=== PATIENT | female | born 1965 | race Caucasian/White ===

== ENCOUNTER → 2016-11-11 | Outpatient (CLI) | payer MEDICARE | LOC: GMAH 10:31 | PROVIDERS: ATTEND Family Medicine | DX: R56.9 Unspecified convulsions (principal) ==

== ENCOUNTER → 2016-11-12 | Outpatient (CLI) | payer MEDICARE ==
--- NOTE | 2016-11-12 10:10 | RAD ---
EXAM DESCRIPTION: Right ankle three views CLINICAL HISTORY: 51 y/o ,F, ankle pain COMPARISON: None. IMPRESSION: Diffuse soft tissue swelling. Very minimally posteriorly displaced oblique fracture of the distal fibula just above the joint line. Mild widening of the medial clear space suggesting a degree of ankle instability/ deltoid injury. Probable eversion injury given overall pattern. Bones are osteopenic/osteoporotic. Moderate joint effusion/ hemarthrosis. Small plantar and Achilles enthesophyte. Electronically signed by: Nato Riley MD 11/12/2016 10:08
== END ==
LOC: RAD 08:39
PROVIDERS: ATTEND Orthopaedic Surgery
DX: S82.831A Other fracture of upper and lower end of right fibula, initial encounter for closed fracture (principal); M85.871 Other specified disorders of bone density and structure, right ankle and foot; M79.89 Other specified soft tissue disorders; M25.471 Effusion, right ankle; M77.8 Other enthesopathies, not elsewhere classified

== ENCOUNTER → 2016-11-19 | Outpatient (CLI) | payer MEDICARE ==
--- NOTE | 2016-11-19 09:12 | RAD ---
EXAM DESCRIPTION: XR ANKLE 3 OR MORE VIEWS CLINICAL HISTORY: CLOSED FX OF DISTAL FIBULA COMPARISON: 12 November 2016. TECHNIQUE: Three views. FINDINGS: The exam is obtained through casting material in demonstrates of prior oblique fracture of the distal fibula. There is 1 cortical width of lateral displacement of the distal fracture fragment. A plantar calcaneal spur is observed. The ankle mortise is intact. IMPRESSION: An oblique fracture of the distal fibula is observed unchanged from the prior exam. Electronically signed by: Gene Luo MD 11/19/2016 09:11
== END ==
LOC: RAD 07:50
PROVIDERS: ATTEND Orthopaedic Surgery
DX: S82.821A Torus fracture of lower end of right fibula, initial encounter for closed fracture (principal)

== ENCOUNTER → 2016-11-20 | Outpatient (CLI) | payer MEDICARE | LOC: GMAH 10:14 | PROVIDERS: ATTEND Family Medicine | DX: R56.9 Unspecified convulsions (principal) ==

== ENCOUNTER → 2016-12-02 | Outpatient (CLI) | payer MEDICARE ==
--- NOTE | 2016-12-02 10:01 | RAD ---
EXAM DESCRIPTION: XR ANKLE 3 OR MORE VIEWS CLINICAL HISTORY: 51 y/o ,F, CLOSED FRACTURE OF DISTAL FIBULA COMPARISON: November 19, 2016 IMPRESSION: Three views right ankle When compared to the prior the obliquely oriented lateral malleoli fracture is unchanged. The syndesmosis is unremarkable. Ankle mortise is unremarkable. No fracture noted. Electronically signed by: Roni Manzano MD 12/02/2016 10:00
== END ==
LOC: RAD 07:42
PROVIDERS: ATTEND Orthopaedic Surgery
DX: S82.821A Torus fracture of lower end of right fibula, initial encounter for closed fracture (principal)

== ENCOUNTER → 2016-12-26 | Outpatient (CLI) | payer MEDICARE | END | disposition home or self-care (01) | LOC: GMAH 12:18 | PROVIDERS: ATTEND Family Medicine | DX: R56.9 Unspecified convulsions (principal) ==

== ENCOUNTER 2017-06-08 09:33 | Observation (INO) | payer MEDICARE ==
[2017-06-08] MEDS ORDERED: PHENYTOIN SODIUM INJ 1,000 MG in SODIUM CHLORIDE 0.9% 100ML 100 ML IVPB ONE (09:40)
[2017-06-08] MEDS ORDERED: PHENYTOIN SODIUM INJ 250 MG/5 ML VIAL ONE ×2 (09:43→20:59)
[2017-06-08] MEDS ORDERED: SODIUM CHLORIDE 0.9% 100ML 100 ML IVPB ONE ×2 (09:43→20:59)
--- NOTE | 2017-06-08 09:47 | ED.PDOC ---
History of Present Illness - General Chief Complaint: Neuro Symptoms/Deficits Stated Complaint: seizures Time Seen by Provider: 06/08/17 09:44 Source: EMS notes reviewed Exam Limitations: clinical condition - History of Present Illness Initial Comments: Corey Berman 52 y/o female brought by ems after they were called up at a convenience store where she had multiple seizure episodes.Has long standing history of seizure disorder.Patient was seizing when brought to er.Also fell to the floor while having seizure at convenience store. Timing/Duration: 1-3 hours Severity: severe Improving Factors: nothing Worsening Factors: nothing Allergies/Adverse Reactions: Allergies Latex Allergy (Verified 10/27/14 12:40) Anaphylaxis New allergy reported 10/27/14 Levetiracetam [From [facility]] Allergy (Verified 10/14/16 01:28) Home Medications: Ambulatory Orders Lisinopril 10 mg PO DAILY 10/27/14 Phenytoin Sodium Cap [Dilantin Cap] 200 mg PO BID 10/27/14 Oxcarbazepine [Trileptal] 300 mg PO DAILY 09/18/15 Chlorzoxazone 500 mg PO 10/14/16 Nitroglycerin [Nitrostat] 0.4 mg SL Q5MIN PRN #1 bottle 10/14/16 Oxcarbazepine 600 mg PO 10/14/16 Review of Systems - Review of Systems Unable to Obtain Due To: clinical condition - was actively seizing when brought to er unresponsive Past Medical History (General) - Patient Medical History Hx Seizures: Yes Hx Stroke: No Hx Cardiac Disorders: Yes Hx Congestive Heart Failure: No Hx Hypertension: Yes Hx Diabetes: No Hx MRSA: No - Vaccination History Hx Tetanus, Diphtheria Vaccination: No Hx Influenza Vaccination: Yes Hx Pneumococcal Vaccination: No - Social History Hx Tobacco Use: Yes Hx Alcohol Use: No Hx Substance Use: No Hx Substance Use Treatment: No Hx Depression: No - Female History Patient : No Family Medical History - Family History Mother Family History: No Known Living Status: Age at (years of age): 65 Hx Family Cancer: Yes - lung Father Family History: Unknown Living Status: Still Living Hx Family Diabetes: Yes Hx Family;Other: Adopted; unknown family hx Physical Exam - Physical Exam General Appearance: Other - seizing,unresponsive Eye Exam: bilateral normal ENT Exam: normal ENT inspection, TMs normal Neck: supple Respiratory: lungs clear Cardiovascular/Chest: normal peripheral pulses, regular rate, rhythm, no murmur Peripheral Pulses: radial,right: 1+, radial,left: 1+ Gastrointestinal/Abdominal: normal bowel sounds, soft, no organomegaly Back Exam: normal inspection Extremities Exam: no evidence of injury 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: PERRL Skin Exam: normal color, warm/dry Progress - Progress Progress: 06/08/17 11:42 Last Vital Signs Temp 98.3 F 06/08/17 10:02 Pulse 91 H 06/08/17 11:00 Resp 16 06/08/17 11:00 BP 108/70 06/08/17 11:00 Pulse Ox 98 06/08/17 11:00 Laboratory Tests 06/08/17 06/08/17 06/08/17 10:09 10:09 10:09 WBC 7.9 RBC 4.75 Hgb 13.9 Hct 42.9 MCV 90.3 MCH 29.3 MCHC 32.5 L RDW 13.7 Plt Count 257 MPV 8.1 Absolute Neuts (auto) 4.70 Absolute Lymphs (auto) 2.70 Absolute Monos (auto) 0.40 Absolute Eos (auto) 0.10 Absolute Basos (auto) 0.10 Neutrophils % 59.7 Lymphocytes % 33.9 Monocytes % 4.6 Eosinophils % 0.8 L Basophils % 1.0 Sodium 137 Potassium 4.0 Chloride 104 Carbon Dioxide 17 L Anion Gap 20.0 H BUN 11 Creatinine 0.63 BUN/Creatinine Ratio 17.5 POC Glucose 155 H Random Glucose 151 H Serum Osmolality 276.1 Calcium 8.4 Total Bilirubin 0.3 AST 25 ALT 11 Alkaline Phosphatase 124 H Serum Total Protein 7.5 Albumin 4.0 Globulin 3.5 Albumin/Globulin Ratio 1.1 Phenytoin 4.4 L - EKG/XRAY/CT CT Ordered: Yes - head/neck-no acute abnormalities Departure - Departure Clinical Impression: Dilantin level too low, Post-ictal state Uncontrolled seizures Qualifiers: Convulsion type: unspecified Qualified Code(s): R56.9 - Unspecified convulsions Time of Disposition: 11:43 Disposition: Admit Patient Condition: Fair Departure Forms: Patient Portal Self Enrollment Referrals: Shay Hartman MD [Primary Care Provider] - 1-2 Weeks Home Medications: Ambulatory Orders Lisinopril 10 mg PO DAILY 10/27/14 Phenytoin Sodium Cap [Dilantin Cap] 200 mg PO BID 10/27/14 Oxcarbazepine [Trileptal] 300 mg PO DAILY 09/18/15 Chlorzoxazone 500 mg PO 10/14/16 Nitroglycerin [Nitrostat] 0.4 mg SL Q5MIN PRN #1 bottle 10/14/16 Oxcarbazepine 600 mg PO 10/14/16 Decision To Admit - Decistion To Admit Decision to Admit Reason: Admit from ER Decision to Admit Date: 06/08/17 - D/W Marcelle Cruz-ANP/Hospitalist for admit Decision to Admit Time: 11:43
--- NOTE | 2017-06-08 10:41 | RAD ---
PROCEDURE: XR CHEST 1 VIEW HISTORY: ams COMPARISON: 10/14/2016 TECHNIQUE: Single projection of the chest was done. FINDINGS: The lung figueroa are well inflated . There are no discrete airspace infiltrates, pneumothoraces or pleural effusions. The pulmonary vascularity is normal. The cardiomediastinal silhouette is unremarkable for patient's age and sex. IMPRESSION: There is no acute pleural-parenchymal process seen in the imaged lung figueroa. Location of Interpretation: Teleradiology Electronically signed by: Sid Faust MD 06/08/2017 10:40 AM CDT Workstation: [id number]
--- NOTE | 2017-06-08 11:04 | CT ---
EXAM DESCRIPTION: Head CLINICAL HISTORY: seizures COMPARISON: None Available. TECHNIQUE: Contiguous axial images of the brain were obtained without the administration of intravenous contrast. This exam was performed according to our departmental dose-optimization program, which includes automated exposure control, adjustment of the mA and/or kV according to patient size and/or use of iterative reconstruction technique. FINDINGS: Several images are degraded by motion artifact. There is no gross acute intracranial hemorrhage or mass effect. Ventricular system is within normal limits. There is adequate vallecillo-white matter differentiation. There is no skull fracture. The visualized paranasal sinuses and mastoid air cells are within normal limits. IMPRESSION: Several images are degraded by motion artifact. No gross acute intracranial hemorrhage or mass effect. Recommend further imaging as indicated. Electronically signed by: David Zamora MD 06/08/2017 11:02 AM CDT
--- NOTE | 2017-06-08 11:21 | CT ---
EXAM DESCRIPTION: CT CERVICAL SPINE CLINICAL HISTORY: seizures COMPARISON: None Available. TECHNIQUE: Contiguous axial images of the cervical spine were obtained followed by reconstruction images.This exam was performed according to our departmental dose-optimization program, which includes automated exposure control, adjustment of the mA and/or kV according to patient size and/or use of iterative reconstruction technique. FINDINGS: There is no acute fracture or subluxation. The prevertebral soft tissues are within normal limits. There is anterior osteophytic formation at C4 and C5. IMPRESSION: No acute fracture or subluxation. Electronically signed by: David Zamora MD 06/08/2017 11:19 AM CDT
--- NOTE | 2017-06-08 12:27 | HP ---
SUPERVISING PHYSICIAN: CHIEF COMPLAINT: Seizures. HISTORY OF PRESENT ILLNESS: This is a 52 year-old female patient who was brought in by EMS after the patient was found to have seizures at a convenience store. At that time, she had several episodes of seizures. She has a longstanding history of seizure disorders. She sees Dr. Siddiqui for her medications. There was also a witnessed fall while having this seizure in the convenience store, but no report of trauma. In the Emergency Room her lab was done and her sodium was 137, potassium 4, chloride 104, carbon dioxide 17, BUN 11 and creatinine 0.63. She had an elevated glucose of 155. Her liver enzymes were basically within normal limits with the exception of her alkaline phosphatase which was 124. Her Dilantin level was low at 4.4. CBC was basically within normal limits. Head CT was done and per radiologic interpretation showed no gross acute intracranial hemorrhage or mass effect. Her cervical spine CT per radiologic interpretation showed no acute fracture or subluxation. She was given one gram of Dilantin in the Emergency Room as well as 2 mg of Ativan. After the administration of the Ativan she had no further seizures but she was postictal. Her vital signs were stable. I was called for admission. Review of systems and medical history is limited due to the patient's mental status. Most information was obtained via the EMR and her chart at [facility]. PAST MEDICAL HISTORY: 1. Seizure disorder. 2. Anxiety. 3. Depression. 4. Hypertension. PAST SURGICAL HISTORY: 1. Appendectomy. 2. Uvulopalatopharyngoplasty. CURRENT MEDICATIONS: Per EMR and awaiting verification. ALLERGIES: NO KNOWN DRUG ALLERGIES. FAMILY HISTORY: Unknown. SOCIAL HISTORY: She is retired. She is single. She smokes about one-half to one pack of cigarettes daily and she has no ETOH history. REVIEW OF SYSTEMS: Unable to obtain due to patient's current mental status. PHYSICAL EXAMINATION: VITAL SIGNS: She is afebrile. Heart rate has gone as high as 117 and is now 73. Blood pressure is 108/70. Respiratory rate is 16 to 24 breaths per minute. O2 saturation is 96% on 2 liters. GENERAL: This is a 52 year-old female patient who is lying in her hospital bed. HEENT: Normocephalic and atraumatic. Pupils are equal and reactive. Oropharynx is clear. Oral mucous membranes are moist. NECK: Supple without mass. CHEST: Clear to auscultation bilaterally. CARDIOVASCULAR: Regular rate and rhythm. ABDOMEN: Soft, nondistended, bowel sounds are positive. EXTREMITIES: No cyanosis, clubbing, or edema. NEUROLOGIC: She is obtunded. She withdraws to noxious stimuli. She is postictal. SKIN: Warm and dry with no lesions noted. LABORATORY: Labs and films are as per the history of present illness. ASSESSMENT: 1. Seizure disorder with subtherapeutic Dilantin level. 2. Altered mental status most likely sedimentation to postictal state. 3. Hypertension. 4. Depression. 5. Anxiety. PLAN: We will place the patient in observation. I have ordered a urinalysis as they were unable to obtain one in the Emergency Room. Her friend stated that she gets Dilantin 400 mg twice a day so I have restarted that amount. I will start it this evening except I will give it to her IV. She will be n.p.o. until she wakes up. I have ordered routine lab for in the morning including Dilantin level. We will start her on a PPI for ulcer prophylaxis. I have also ordered some Ativan in case she has any further seizure activity. She will be on every 6 hours neuro checks as well as on telemetry. We will known to to monitor the patient closely and follow as needed. Dr. Bianchi is the collaborating physician and available for consultation. #[id number] [facility]ITAL[facility]oty
[2017-06-08] MEDS ORDERED: SODIUM CHLORIDE 0.9% (FLUSH) 10 ML SYG IV PRN (14:08)
[2017-06-08] MEDS ORDERED: LEVALBUTEROL NEBS 1.25 MG/3 ML VIAL NEB PRN (14:13)
[2017-06-08] MEDS ORDERED: IV SET AND CAP CHANGE INJ INJ SCH (14:30)
[2017-06-08] MEDS ORDERED: DEX 5% W/NACL 0.45% 1000ML 1,000 ML IVS ONE (14:45)
[2017-06-08] MEDS: DEX 5% W/NACL 0.45% 1000ML 1,000 ML IVS PRN (14:47)
[2017-06-08] MEDS ORDERED: SODIUM CHLORIDE 0.9% IVPB SCH ×2 (15:00→21:00)
[2017-06-08] MEDS ORDERED: PHENYTOIN SODIUM IVPB SCH ×2 (15:00→21:00)
[2017-06-08] MEDS: PANTOPRAZOLE SODIUM IV 40 MG VIAL IV SCH (15:48)
[2017-06-08] MEDS: LEVALBUTEROL NEBS 1.25 MG/3 ML VIAL NEB SCH ×2 (16:40→19:44)
[2017-06-09] MEDS: DEX 5% W/NACL 0.45% 1000ML 1,000 ML IVS PRN (04:34)
[2017-06-09] MEDS: PANTOPRAZOLE SODIUM IV 40 MG VIAL IV SCH (06:27)
[2017-06-09 06:31] VITALS: BP 131/82; TEMP 98.5; O2SAT 97
[2017-06-09] MEDS ORDERED: PHENYTOIN SODIUM INJ 250 MG/5 ML VIAL ONE (07:56)
[2017-06-09] MEDS ORDERED: SODIUM CHLORIDE 0.9% 100ML 0 ML IVPB ONE (07:56)
[2017-06-09] MEDS: LEVALBUTEROL NEBS 1.25 MG/3 ML VIAL NEB SCH (08:47)
[2017-06-09] MEDS ORDERED: PHENYTOIN SODIUM CAP EXTENDED 100 MG CAP PO ONE (09:43)
--- NOTE | 2017-06-09 11:11 | DS ---
SUPERVISING PHYSICIAN: Tez Guerrero MD DISCHARGE DIAGNOSIS: 1. Seizure disorder with subtherapeutic Dilantin level. 2. Altered mental status most likely secondary to postictal state. 3. Hypertension. 4. Depression. 5. Anxiety. HISTORY OF PRESENT ILLNESS: This is a 52-year-old female patient who was brought to the Emergency Room after having witnessed seizures at a local convenience store. She was transported by EMS and was seizing upon arrival to the Emergency Department. In the Emergency Room, she received 2 mg of Ativan and lab was done. She also had a witnessed fall at the convenience store, but there was no report of trauma. Her sodium was 137, potassium 4, chloride 104, carbon dioxide 17, BUN 11 and creatinine 0.63. She had an elevated glucose of 155. Her liver enzymes were basically within normal limits with the exception of her alkaline phosphatase which was 124. Her Dilantin level was low at 4.4. CBC was basically within normal limits. Head CT was done and per radiologic interpretation showed no gross acute intracranial hemorrhage or mass effect. Her cervical spine CT per radiologic interpretation showed no acute fracture or subluxation. She was given one gram of Dilantin in the Emergency Room and was placed in observation in the hospital. HOSPITAL COURSE: She remained in a postictal state for several hours after admission to the Floor. Urinalysis was unable to be obtained in the Emergency Room, so nursing staff attempted a straight cath on her and she became awake and very combative. She was given 0.5 mg of Ativan at that time and her agitation was diminished. Late in the evening, she was able to take oral fluids and respond appropriately. This morning, her vital signs have been stable. Her labs are stable. She received 400 mg of Dilantin at 9 PM last night. This morning, her Dilantin level is 15.5. I discussed with her Dr. Hartman, her primary care physician. She had seen Dr. Siddiqui in the past, but it is unclear whether she is still a patient with him. She can be discharged home. DISCHARGE PLAN: The patient will be discharged home in stable condition. She is to resume her previous diet as well as her previous activity. She has an appointment with Dr. Hartman on 06/16/17 at 2 PM. She has been instructed to come to the hospital the day before her appointment on 06/15/17 to get lab drawn for a Dilantin level. I have increased her Dilantin dosing to 200 mg in the morning and 300 mg at h.s. She will see Dr. Hartman at that time and hopefully he can get her an appointment with a neurologist as well as adjust Dilantin dosing as needed. She is to return to the hospital or call Dr. Hartman 's office for any further problems or complaints. DISCHARGE MEDICATIONS: 1. Dilantin 200 mg q.a.m., 300 mg q.p.m. 2. Chlorzoxazone. 3. Oxcarbazepine. 4. Nitroglycerin. 5. Ativan. 6. Lamotrigine. Dr. Guerrero is the collaborating physician and available for consultation. #[id number] [facility]ERCoty
== END 2017-06-09 10:00 | disposition home or self-care (01) ==
LOC: ER 09:33 → UNDOADMIN 12:26 → MS 12:26 → UNDODISIN 06-09 10:00
PROVIDERS: ADMIT Nurse Practitioner Acute Care; ATTEND Nurse Practitioner Acute Care
DX: G40.909 Epilepsy, unspecified, not intractable, without status epilepticus (principal); R41.82 Altered mental status, unspecified; I10 Essential (primary) hypertension; F32.9 Major depressive disorder, single episode, unspecified; F41.9 Anxiety disorder, unspecified; F17.210 Nicotine dependence, cigarettes, uncomplicated; M25.78 Osteophyte, vertebrae; Z79.899 Other long term (current) drug therapy; Z88.8 Allergy status to other drugs, medicaments and biological substances; Z91.040 Latex allergy status; Z90.49 Acquired absence of other specified parts of digestive tract; W18.39XA Other fall on same level, initial encounter; Y93.89 Activity, other specified; Y92.512 Supermarket, store or market as the place of occurrence of the external cause; Y99.8 Other external cause status
CPT/HCPCS: 36415 ×2; 70450; 71010; 72125; 80053 ×2; 80185 ×2; 81001; 82948; 85025 ×2; 94640 ×2; 94760 ×4; 96365; 96375 ×2; 96376 ×2; 99284; 99406; G0378; J2060 ×4; J7050 ×2; J7614 ×2; J7799 ×2

== ENCOUNTER → 2017-06-15 | Outpatient (CLI) | payer MEDICARE | END | disposition home or self-care (01) | LOC: LAB.O 14:05 | PROVIDERS: ATTEND Family Medicine | DX: R56.9 Unspecified convulsions (principal) ==

== ENCOUNTER 2017-07-15 11:15 | Emergency (ER) | payer MEDICARE ==
[2017-07-15] MEDS ORDERED: SODIUM CHLORIDE 0.9% 1000ML 1,000 ML IVS PRN (11:49)
[2017-07-15] MEDS ORDERED: SODIUM CHLORIDE 0.9% (FLUSH) 10 ML SYG IV PRN (11:49)
--- NOTE | 2017-07-15 11:54 | ED.PDOC ---
History of Present Illness - General Chief Complaint: Neuro Symptoms/Deficits Stated Complaint: Seizure at home Time Seen by Provider: 07/15/17 11:49 Source: patient, EMS notes reviewed Exam Limitations: clinical condition - History of Present Illness Initial Comments: PT BROUGHT INTO THE EMERGENCY ROOM AFTER HAVING A SEIZURE AT HOME THAT LASTED APPROXIMATELY 2 MINUTES. THIS IS PTS SECOND SEIZURE IN THE PAST 2 WEEKS. PT ARRIVES TO THE ED AWAKE AND ALERT BUT SOMEWHAT CONFUSED. HISTORY OF TBI AND SEIZURES PER EMS. Timing/Duration: episodic Episode Description: LASTED 2 MINS, WITNESSED BY FAMILY Improving Factors: nothing Worsening Factors: nothing Associated Symptoms: confusion Allergies/Adverse Reactions: Allergies Latex Allergy (Verified 10/27/14 12:40) Anaphylaxis New allergy reported 10/27/14 Levetiracetam [From [facility]] Allergy (Verified 10/14/16 01:28) Home Medications: Ambulatory Orders Chlorzoxazone 500 mg PO QID PRN 10/14/16 Oxcarbazepine 600 mg PO BID 10/14/16 LORazepam [Ativan] 0.5 mg PO Q6H PRN 06/08/17 Lamotrigine 100 mg PO BID 06/08/17 Phenytoin Sodium Cap Extended [Dilantin Cap] 100 mg PO QAM #150 cap 06/09/17 Cefuroxime Axetil [Ceftin] 250 mg PO BID #20 tab 07/15/17 Review of Systems - Review of Systems Unable to Obtain Due To: clinical condition, other - CONFUSED POSTICTAL STATE 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 Hx Stroke: No Hx Asthma: No Hx of COPD: No Hx Cardiac Disorders: Yes Hx Congestive Heart Failure: No Hx Pacemaker: No Hx Hypertension: Yes Hx Diabetes: No Hx MRSA: No - Vaccination History Hx Tetanus, Diphtheria Vaccination: No Hx Influenza Vaccination: Yes Hx Pneumococcal Vaccination: No - Social History Hx Tobacco Use: Yes Hx Alcohol Use: No Hx Substance Use: No Hx Substance Use Treatment: No Hx Depression: No - Female History Patient : No Family Medical History - Family History Mother Family History: No Known Living Status: Age at (years of age): 65 Hx Family Cancer: Yes - lung Father Family History: Unknown Living Status: Still Living Hx Family Diabetes: Yes Hx Family;Other: Adopted; unknown family hx Physical Exam - Physical Exam General Appearance: Alert, Comfortable, No apparent distress, Well Developed, Well Groomed, Well Hydrated ENT Exam: hearing grossly normal Neck: normal inspection Respiratory: lungs clear, normal breath sounds, no respiratory distress Cardiovascular/Chest: regular rate, rhythm, no edema Gastrointestinal/Abdominal: non tender, soft Mental Status: alert, other - CONFUSED, REPEATS QUESTIONS 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 ANSWERS AND CONVERSES APPROPRIATELY. LAB FINDINGS DISCUSSED. PT INSTRUCTED TO SKIP NEXT DOSE OF DILANTIN. - Results/Orders Results/Orders: 07/15/17 11:49 Sodium Chloride 0.9% (Flush) [Saline Flush Syringe] 10 ml IV PRN PRN Sodium Chloride 0.9% 1000ML [Ns 1000 ml] 1,000 ml IVS .QD 07/15/17 11:50 IV Care:Saline Lock per Protoc QSHIFT 07/15/17 12:53 URINE CULTURE W/COLONY COUNT Stat 07/15/17 13:27 cefTRIAXone SODIUM [Rocephin] 1 gm Sodium Chl 0.9% 50Ml Min-Bag+ [NS 50ml MINI -BAG+] 50 ml IVPB ONCE Laboratory Results - last 24 hr 07/15/17 07/15/17 07/15/17 11:50 12:10 12:10 WBC 7.9 RBC 5.04 Hgb 15.0 Hct 44.3 MCV 87.8 MCH 29.8 MCHC 34.0 RDW 13.3 Plt Count 291 MPV 7.7 Absolute Neuts (auto) 5.50 Absolute Lymphs (auto) 2.10 Absolute Monos (auto) 0.30 Absolute Eos (auto) 0.00 Absolute Basos (auto) 0.10 Neutrophils % 68.8 Lymphocytes % 26.1 Monocytes % 3.8 Eosinophils % 0.6 L Basophils % 0.7 Sodium 136 Potassium 4.3 Chloride 101 Carbon Dioxide 26 Anion Gap 13.3 BUN 9 Creatinine 0.48 L BUN/Creatinine Ratio 18.8 Random Glucose 107 H Serum Osmolality 271.1 L Calcium 8.8 Total Bilirubin < 0.2 L AST 16 ALT 12 Alkaline Phosphatase 162 H Serum Total Protein 7.7 Albumin 4.1 Globulin 3.6 H Albumin/Globulin Ratio 1.1 Urine Color Urine Appearance Urine pH Ur Specific [place] Urine Protein Urine Glucose (UA) Urine Ketones Urine Blood Urine Nitrite Urine Bilirubin Urine Urobilinogen Ur Leukocyte Esterase Urine RBC Urine WBC Ur Epithelial Cells Amorphous Sediment Urine Bacteria Urine Mucus Urine Opiates Screen Negative Urine Barbiturates Negative Phenytoin Ur Phencyclidine Scrn Negative U Amphetamin/Meth Scrn Negative U Benzodiazepines Scrn Negative U Cocaine Metab Screen Negative U Cannabinoids Screen Negative Ethyl Alcohol 07/15/17 07/15/17 07/15/17 12:10 12:10 12:53 WBC RBC Hgb Hct MCV MCH MCHC RDW Plt Count MPV Absolute Neuts (auto) Absolute Lymphs (auto) Absolute Monos (auto) Absolute Eos (auto) Absolute Basos (auto) Neutrophils % Lymphocytes % Monocytes % Eosinophils % Basophils % Sodium Potassium Chloride Carbon Dioxide Anion Gap BUN Creatinine BUN/Creatinine Ratio Random Glucose Serum Osmolality Calcium Total Bilirubin AST ALT Alkaline Phosphatase Serum Total Protein Albumin Globulin Albumin/Globulin Ratio Urine Color Yellow Urine Appearance Sl cloudy Urine pH 6.5 Ur Specific [place] 1.015 Urine Protein Negative Urine Glucose (UA) Negative Urine Ketones Negative Urine Blood Negative Urine Nitrite Negative Urine Bilirubin Negative Urine Urobilinogen 0.2 Ur Leukocyte Esterase Moderate H Urine RBC 30-40 H Urine WBC >50 H Ur Epithelial Cells 5-10 Amorphous Sediment Trace Urine Bacteria 2+ H Urine Mucus Trace Urine Opiates Screen Urine Barbiturates Phenytoin 22.4 H* D Ur Phencyclidine Scrn U Amphetamin/Meth Scrn U Benzodiazepines Scrn U Cocaine Metab Screen U Cannabinoids Screen Ethyl Alcohol < 5.40 Departure - Departure Clinical Impression: Seizure disorder, Elevated Dilantin level, UTI (urinary tract infection) Time of Disposition: 13:57 Disposition: Discharge to Home or Self Care Condition: Good Departure Forms: ED Discharge - Pt. Copy, Patient Portal Self Enrollment Instructions: Phenytoin, DI for Urinary Tract Infection (UTI), DI for Seizure Disorder -- Adult Referrals: Shay Hartman MD [Primary Care Provider] - 1-2 Weeks Prescriptions: Cefuroxime Axetil [Ceftin] 250 mg PO BID #20 tab Home Medications: Ambulatory Orders Chlorzoxazone 500 mg PO QID PRN 10/14/16 Oxcarbazepine 600 mg PO BID 10/14/16 LORazepam [Ativan] 0.5 mg PO Q6H PRN 06/08/17 Lamotrigine 100 mg PO BID 06/08/17 Phenytoin Sodium Cap Extended [Dilantin Cap] 100 mg PO QAM #150 cap 06/09/17 Cefuroxime Axetil [Ceftin] 250 mg PO BID #20 tab 07/15/17
[2017-07-15] MEDS ORDERED: cefTRIAXone SODIUM 1 GM in SODIUM CHL 0.9% 50ML MIN-BAG+ 50 ML IVPB ONE (13:27)
[2017-07-15 13:54] VITALS: TEMP 98
[2017-07-15 14:14] VITALS: BP 152/92; O2SAT 99
== END 2017-07-15 14:14 | disposition home or self-care (01) ==
LOC: ER 11:15
DX: G40.909 Epilepsy, unspecified, not intractable, without status epilepticus (principal); N39.0 Urinary tract infection, site not specified; R79.89 Other specified abnormal findings of blood chemistry; I10 Essential (primary) hypertension; Z87.820 Personal history of traumatic brain injury; Z91.040 Latex allergy status; Z91.018 Allergy to other foods; Z79.899 Other long term (current) drug therapy
CPT/HCPCS: 36415; 36416; 80053; 80185; 80307; 80320; 81001; 85025; 87086; J7030

== ENCOUNTER 2017-07-25 19:39 | Emergency (ER) | payer MEDICARE ==
[2017-07-25] MEDS ORDERED: PROMETHAZINE HCL INJ 25 MG/ML VIAL IM ONE (21:11)
--- NOTE | 2017-07-25 21:12 | CT ---
EXAM: CT abdomen and pelvis without contrast. INDICATION: Abdominal pain, acute. TECHNIQUE: Contiguous axial CT images of the abdomen and pelvis. Intravenous contrast: Absent. Oral contrast: Absent. Protocol: Renal stone. DLP 624 mGy-cm. This exam was performed according to our departmental dose-optimization program, which includes automated exposure control, adjustment of the mA and/or kV according to patient size and/or use of iterative reconstruction technique. COMPARISON: None. FINDINGS: Lower chest: Partially imaged. Bilateral intracapsular breast implant ruptures are noted. Lung bases: Unremarkable. Cardiac apex: Unremarkable. Solid abdominal viscera: Limited by lack of intravenous contrast. Liver: Unremarkable. Gallbladder: Not well seen Pancreas: Unremarkable. Spleen: Unremarkable. Adrenal glands: Unremarkable. Right kidney: No urolithiasis or hydronephrosis. Left kidney: No urolithiasis or hydronephrosis. Urinary bladder: Contains tiny bubbles of air Abdominal aorta: Unremarkable. Peritoneal: Free fluid: None. Free air: None. Other: No pathologic sized lymph nodes in the upper abdomen. Bowel: Stomach: Unremarkable. Small bowel: Unremarkable. Appendix: Not uniquely identified, however there are no inflammatory changes within the right lower quadrant Colon: Diverticulosis without evidence of diverticulitis Rectum: Unremarkable. Uterus: Hysterectomy Bones: Unremarkable. IMPRESSION: Tiny bubbles of air within the urinary bladder, which may be due to cystitis. No evidence of nephrolithiasis or hydronephrosis. Diverticulosis without evidence of diverticulitis. Electronically signed by: Irvin Otoole MD 07/25/2017 9:11 PM CDT Workstation: [email or web address]
[2017-07-25 21:20] VITALS: BP 156/80; O2SAT 98
[2017-07-25] MEDS ORDERED: SULFA/TRIMETH 800/160 (DS) TAB 1 EA TAB PO ONE (21:24)
--- NOTE | 2017-07-25 21:27 | ED.PDOC ---
History of Present Illness - General Chief Complaint: Problem Stated Complaint: Kidney stone Time Seen by Provider: 07/25/17 20:30 Source: patient Exam Limitations: other - History of TBI - History of Present Illness Initial Comments: Patient presents saying that she passed "several" stones today. She said that she could see them in her urine. She states that she has a remote history of kidney stones. No dysuria, anuria, hematuria,nor frequency. No back pain. No other complaints. Timing/Duration: other - 12 hours Severity: mild Improving Factors: nothing Worsening Factors: nothing Associated Symptoms: denies symptoms Allergies/Adverse Reactions: Allergies Latex Allergy (Verified 10/27/14 12:40) Anaphylaxis New allergy reported 10/27/14 Levetiracetam [From [facility]] Allergy (Verified 10/14/16 01:28) Home Medications: Ambulatory Orders Chlorzoxazone 500 mg PO QID PRN 10/14/16 Oxcarbazepine 600 mg PO BID 10/14/16 LORazepam [Ativan] 0.5 mg PO Q6H PRN 06/08/17 Lamotrigine 100 mg PO BID 06/08/17 Phenytoin Sodium Cap Extended [Dilantin Cap] 200 mg PO QAM 07/25/17 Phenytoin Sodium Cap Extended [Dilantin Cap] 300 mg PO BEDTIME 07/25/17 Sulfa/Trimeth 800/160 (Ds) Tab [Bactrim DS Tab] 0 ea PO Q12HRS #10 tab 07/25/17 Review of Systems - Review of Systems Constitutional: States: no symptoms reported EENTM: States: no symptoms reported Respiratory: States: no symptoms reported Cardiology: States: no symptoms reported Gastrointestinal/Abdominal: States: no symptoms reported Genitourinary: States: see HPI Musculoskeletal: States: no symptoms reported Skin: States: no symptoms reported Neurological: States: no symptoms reported Endocrine: States: no symptoms reported Hematologic/Lymphatic: States: no symptoms reported 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 Hx Stroke: No Hx Asthma: No Hx of COPD: No Hx Cardiac Disorders: Yes Hx Congestive Heart Failure: No Hx Pacemaker: No Hx Hypertension: Yes Hx Diabetes: No Hx Cancer: No Hx Hepatitis C: No Hx MRSA: Yes MRSA Source:: Wound - Vaccination History Hx Tetanus, Diphtheria Vaccination: Yes Hx Influenza Vaccination: Yes Hx Pneumococcal Vaccination: No Immunizations Up to Date: Yes - Social History Hx Tobacco Use: Yes Hx Alcohol Use: No Hx Substance Use: No Hx Substance Use Treatment: No Hx Depression: No - Female History Patient is a Female of Child Bearing Age (10 -59 yrs old): Yes Patient : No Family Medical History - Family History Mother Family History: No Known Living Status: Age at (years of age): 65 Hx Family Cancer: Yes - lung Father Family History: Unknown Living Status: Still Living Hx Family Diabetes: Yes Hx Family;Other: Adopted; unknown family hx Physical Exam - Physical Exam General Appearance: Alert Respiratory: lungs clear Cardiovascular/Chest: regular rate, rhythm Gastrointestinal/Abdominal: normal bowel sounds, non tender, soft Back Exam: no CVA tenderness Skin Exam: normal color Progress - Progress Progress: 07/25/17 21:27 UA positive for UTI. CT abdomen and pelvis showed no stones. Patient given RX for Bactrim DS. Laboratory Tests 07/25/17 20:12 Urine Color Yellow Urine Appearance Sl cloudy Urine pH 6.5 Ur Specific [place] 1.020 Urine Protein Negative Urine Glucose (UA) Negative Urine Ketones Trace Urine Blood Negative Urine Nitrite Negative Urine Bilirubin Negative Urine Urobilinogen 0.2 Ur Leukocyte Esterase Large H Urine RBC 3-5 H Urine WBC 40-50 H Ur Epithelial Cells 10-20 Urine Bacteria 1+ Urine Mucus Small Departure - Departure Clinical Impression: Urinary tract infection Disposition: Discharge to Home or Self Care Condition: Good Departure Forms: ED Discharge - Pt. Copy, Patient Portal Self Enrollment Diet: resume usual diet Activity: increase activity as tolerated Referrals: Shay Hartman MD [Primary Care Provider] - 1-2 Weeks Prescriptions: Sulfa/Trimeth 800/160 (Ds) Tab [Bactrim DS Tab] 0 ea PO Q12HRS #10 tab Home Medications: Ambulatory Orders Chlorzoxazone 500 mg PO QID PRN 10/14/16 Oxcarbazepine 600 mg PO BID 10/14/16 LORazepam [Ativan] 0.5 mg PO Q6H PRN 06/08/17 Lamotrigine 100 mg PO BID 06/08/17 Phenytoin Sodium Cap Extended [Dilantin Cap] 200 mg PO QAM 07/25/17 Phenytoin Sodium Cap Extended [Dilantin Cap] 300 mg PO BEDTIME 07/25/17 Sulfa/Trimeth 800/160 (Ds) Tab [Bactrim DS Tab] 0 ea PO Q12HRS #10 tab 07/25/17
[2017-07-25 21:44] VITALS: TEMP 97.1
== END 2017-07-25 21:43 | disposition home or self-care (01) ==
LOC: ER 19:39
DX: N39.0 Urinary tract infection, site not specified (principal); I10 Essential (primary) hypertension; Z87.820 Personal history of traumatic brain injury; Z88.8 Allergy status to other drugs, medicaments and biological substances; Z91.040 Latex allergy status; Z79.899 Other long term (current) drug therapy
CPT/HCPCS: 74176; 81001; 87086; J2550

== ENCOUNTER 2017-07-28 08:23 | Emergency (ER) | payer MEDICARE ==
[2017-07-28 08:34] VITALS: TEMP 98.3
--- NOTE | 2017-07-28 08:42 | ED.PDOC ---
History of Present Illness - General Chief Complaint: Neuro Symptoms/Deficits Stated Complaint: seizures Time Seen by Provider: 07/28/17 08:24 Source: patient Exam Limitations: no limitations - History of Present Illness Initial Comments: the patient is a 52-year-old female presenting to the emergency room secondary to generalized tonic-clonic type seizure. The story of how she arrived here is somewhat uncertain. It is uncertain how long she was seizing this time. Apparently 2 separate seizures were witnessed. It was uncertain how long she was seizing before those 2 seizures. 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 Glucose is 302. Vital signs were otherwise reassuring with the exception of some mild hypoxia with oxygen saturations in the upper 80s. She does apparently have a significant history of smoking. She is not in any respiratory distress. Her lungs actually sound fairly clear. She is currently rattling off some of her medical history. She is only semi-directable with the conversation currently. She is obviously postictal and has had 2 mg of Versed IM. She is obviously not seizing currently. She did bite her tongue on the right lateral aspect but it is hemostatic at this time. She is holding up her arm showing off her previous surgery site. She was seen a few days ago for kidney stones. Prior to that she was seen here 2 weeks ago for a seizure at that time. She was found to have urinary tract infection at that time. She is not febrile. I do not see any written history of any diabetes but her glucose is elevated. She does move her left upper extremity very well but is not moving her left side very much at this point. I'm unsure if this is a chronic finding from her previous injuries. She will have to be reevaluated once she is more awake. I do not see any evidence of any head injury. No evidence pain palpation of her abdomen or her neck or her extremities. reevaluation shows that the patient once she is more awake is completely neglecting her left side. she is not withdrawing to pain on the left side. She is not moving her left side all. She does have a mild left lower facial droop. Speech is very mildly dysarthric still and she still has a mild expressive aphasia. The patient is proceeding to CT scan. A friend has shown up and indicated that she has not had any left-sided neurological deficits recently. She was not actually seen by anyone this morning but had apparently talked to her who called on a cell phone at around 5:30 this morning and had reported that she was acting normal at that time. Her friend also reports that her medicines were scattered in her kitchen like she was about to take her medications when this happened. Timing/Duration: unsure Severity: moderate Improving Factors: nothing Worsening Factors: nothing Associated Symptoms: denies symptoms Allergies/Adverse Reactions: Allergies Latex Allergy (Verified 10/27/14 12:40) Anaphylaxis New allergy reported 10/27/14 Levetiracetam [From [facility]] Allergy (Verified 10/14/16 01:28) Home Medications: Ambulatory Orders Chlorzoxazone 500 mg PO QID PRN 10/14/16 Oxcarbazepine 600 mg PO BID 10/14/16 LORazepam [Ativan] 0.5 mg PO Q6H PRN 06/08/17 Lamotrigine 100 mg PO BID 06/08/17 Phenytoin Sodium Cap Extended [Dilantin Cap] 200 mg PO QAM 07/25/17 Phenytoin Sodium Cap Extended [Dilantin Cap] 300 mg PO BEDTIME 07/25/17 Sulfa/Trimeth 800/160 (Ds) Tab [Bactrim DS Tab] 0 ea PO Q12HRS #10 tab 07/25/17 Review of Systems - Review of Systems Unable to Obtain Due To: clinical condition - Difficult to assess for recent symptoms as the patient has rattling off her medical history and is minimally directable at this point. No family members or friends are present to give any additional information. 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 Hx Stroke: No Hx Asthma: No Hx of COPD: No Hx Cardiac Disorders: Yes Hx Congestive Heart Failure: No Hx Pacemaker: No Hx Hypertension: Yes Hx Diabetes: No Hx Cancer: No Hx Hepatitis C: No Hx MRSA: Yes MRSA Source:: Wound - Vaccination History Hx Tetanus, Diphtheria Vaccination: Yes Hx Influenza Vaccination: Yes Hx Pneumococcal Vaccination: No - Social History Hx Tobacco Use: Yes Hx Alcohol Use: No Hx Substance Use: No Hx Substance Use Treatment: No Hx Depression: No - Female History Patient : No Family Medical History - Family History Mother Family History: No Known Living Status: Age at (years of age): 65 Hx Family Cancer: Yes - lung Father Family History: Unknown Living Status: Still Living Hx Family Diabetes: Yes Hx Family;Other: Adopted; unknown family hx Physical Exam - Physical Exam General Appearance: Other - talking somewhat aimlessly. She is drowsy but has had persistent. She is in no acute distress. reexamination shows significant left-sided deficits and left-sided neglect Eye Exam: bilateral other - I'm unable to get her to gaze towards the left. Ears, Nose, Throat: hearing grossly normal, other - there is some dried blood around her lips from biting her tongue. 3 mm laceration to right lateral tongue is hemostatic. Tympanic membranes are intact No evidence of CSF leakage. No evidence of basilar skull fracture. Neck: non-tender, supple Respiratory: lungs clear, normal breath sounds, no respiratory distress, no accessory muscle use Cardiovascular/Chest: normal peripheral pulses, regular rate, rhythm, no edema, other - the patient bounces from normal sinus rhythm to mild sinus tachycardia Peripheral Pulses: radial,right: 2+, radial,left: 2+, dorsalis pedis,right: 2+, dorsalis pedis,left: 2+ Gastrointestinal/Abdominal: non tender, soft Rectal Exam: deferred Back Exam: no CVA tenderness, no vertebral tenderness - . Extremity: non-tender, no pedal edema, normal capillary refill, other - her left side is flacidly paralyzed. Neurologic: alert - mildly drowsy, oriented x 3 - she knows she is at the hospital. She knows that is the president. She is able to give a lot of her medical history. She is a little off on the date. She knows that she is here due to a seizure., other - she is able to close her eye on the left that she does have a droop at the angle of her mouth on the left. She does have a mild expressive aphasia as well as some very mild dysarthria. She has a left-sided neglect. Skin Exam: normal color Comments: Vital Signs - 24 hr 07/28/17 07/28/17 08:25 08:38 Temperature 98.3 F Pulse Rate [ 109 H apical] Respiratory 24 16 Rate Blood Pressure 132/81 [left brachial] O2 Sat by Pulse 97 Oximetry Progress - Progress Progress: 07/28/17 10:27 the patient a 52-year-old female presenting to the emergency room initially due to seizure activity. She does have a history of epilepsy. Dilantin level was subtherapeutic. The patient received a dose of Versed with EMS. As the patient started coming back around it was obvious that she was having some left-sided deficits. CT scan of the head showed no acute changes, though there was some motion artifact. Soon after I talked with the neurologist on the phone, the patient started moving her left upper and lower extremities. Sensation started coming back. Facial droop on the lower left started improving. The patient still has some mild left-sided neglect. She is able to look to the left. The patient knows where she is. The patient knows what is going on though it is very difficult to convince her that she has or had any neurological deficits. The patient is vehemently against lytic therapy. She is having some short-term memory difficulties as we are having to repeat information to her. Her long-term memory appears to be good. She is now approximately 5 hours since her last known normal. Since she is now of a mindset to legally refuse the TPA, she will be given aspirin. She has agreed to this. She is also reluctantly agreed to be transferred to [facility] where she can have further studies done to see if she needs further intervention to minimize damage. We will attempt to get the CT angiogram requested by the neurologist. The patient is very agitated and may not agree to it. She is going to receive some anxiolytic type medications. Original NIH stroke scale score was 17. Repeat NIH score at 10:30 this morning is now down to approximately a 4. she is still having some short-term memory problems and she still does seem to have some mild neglect for her left side. We have not tried to stand her up yet. She seems to be swallowing well. She did receive her a.m. doses of her medications for epilepsy. The patient refused the IV Dilantin as it was burning. when the patient was more altered had discussed with her using lytic therapy and he had agreed to this, however before her CT scan results were able to be returned and the medication mixed she had improved significantly and refused the TPA. It is still difficult to convince her that she has had a stroke. It has been very difficult to convince her as well to be evaluated with a neurologist. Her is heading up to meet her at the receiving hospital. He is on the road in approximately 6 hours away now. Critical care time spent in care, management and coordination of care and planningis 40 minutes. - Results/Orders Results/Orders: Laboratory Tests 07/28/17 07/28/17 07/28/17 08:30 08:45 08:45 WBC 10.1 RBC 4.71 Hgb 14.0 Hct 41.8 MCV 88.7 MCH 29.8 MCHC 33.5 RDW 13.5 Plt Count 274 MPV 8.3 Absolute Neuts (auto) 8.90 H Absolute Lymphs (auto) 0.90 L Absolute Monos (auto) 0.20 Absolute Eos (auto) 0.00 Absolute Basos (auto) 0.00 Neutrophils % 88.7 H Lymphocytes % 8.8 L Monocytes % 1.7 L Eosinophils % 0.3 L Basophils % 0.5 PT INR PTT (SP) D-Dimer, Quantitative 241 H* Sodium 131 L Potassium 3.5 L Chloride 100 L Carbon Dioxide 15 L Anion Gap 19.5 H BUN 12 Creatinine 0.78 BUN/Creatinine Ratio 15.4 Random Glucose 242 H Serum Osmolality 270.4 L Lactic Acid Calcium 8.2 L Magnesium 2.0 Total Bilirubin 0.4 AST 27 ALT 15 Alkaline Phosphatase 140 H Creatine Kinase CK-MB (CK-2) CK-MB (CK-2) % Troponin I B-Natriuretic Peptide Serum Total Protein 7.2 Albumin 3.8 Globulin 3.4 Albumin/Globulin Ratio 1.1 Phenytoin 9.1 L 07/28/17 07/28/17 07/28/17 08:45 09:00 09:08 WBC RBC Hgb Hct MCV MCH MCHC RDW Plt Count MPV Absolute Neuts (auto) Absolute Lymphs (auto) Absolute Monos (auto) Absolute Eos (auto) Absolute Basos (auto) Neutrophils % Lymphocytes % Monocytes % Eosinophils % Basophils % PT 10.4 INR 0.920 PTT (SP) 24.8 L D-Dimer, Quantitative Sodium Potassium Chloride Carbon Dioxide Anion Gap BUN Creatinine BUN/Creatinine Ratio Random Glucose Serum Osmolality Lactic Acid 6.0 H* Calcium Magnesium Total Bilirubin AST ALT Alkaline Phosphatase Creatine Kinase 58 CK-MB (CK-2) 2.0 CK-MB (CK-2) % Not Reportable Troponin I 0.16 H* B-Natriuretic Peptide 6.0 Serum Total Protein Albumin Globulin Albumin/Globulin Ratio Phenytoin head CT showed no evidence of intracranial hemorrhage or ischemic stroke. There is some motion artifact. Departure - Departure Clinical Impression: Stroke Qualifiers: CVA mechanism: unspecified Qualified Code(s): I63.9 - Cerebral infarction, unspecified Disposition: Transfer to Hospital Referrals: Shay Hartman MD [Primary Care Provider] - 1-2 Weeks Home Medications: Ambulatory Orders Chlorzoxazone 500 mg PO QID PRN 10/14/16 Oxcarbazepine 600 mg PO BID 10/14/16 LORazepam [Ativan] 0.5 mg PO Q6H PRN 06/08/17 Lamotrigine 100 mg PO BID 06/08/17 Phenytoin Sodium Cap Extended [Dilantin Cap] 200 mg PO QAM 07/25/17 Phenytoin Sodium Cap Extended [Dilantin Cap] 300 mg PO BEDTIME 07/25/17 Sulfa/Trimeth 800/160 (Ds) Tab [Bactrim DS Tab] 0 ea PO Q12HRS #10 tab 07/25/17 Transfer to Outside Facility - Transfer Information Accepting Provider:: dr murrieta Accepting Facility: [place] Reason for Transfer: required specialist not available
--- NOTE | 2017-07-28 08:59 | RAD ---
EXAM DESCRIPTION: Chest,1 View CLINICAL HISTORY: mild hypoxia on pulse ox, szr COMPARISON: 08 June 2017 TECHNIQUE: AP portable chest FINDINGS: The lungs are clear. There is no infiltrate or effusion. The heart is normal size. IMPRESSION: Normal portable chest Electronically signed by: Gene Luo MD 07/28/2017 8:57 AM CDT
[2017-07-28] MEDS ORDERED: PHENYTOIN SODIUM INJ 1,000 MG in SODIUM CHLORIDE 0.9% 100ML 100 ML IVPB ONE (09:25)
[2017-07-28] MEDS ORDERED: SODIUM CHLORIDE 0.9% 1000ML 1,000 ML ONE (09:26)
[2017-07-28] MEDS ORDERED: SODIUM CHLORIDE 0.9% 1000ML 1,000 ML IVS PRN (09:27)
[2017-07-28] MEDS ORDERED: SODIUM CHLORIDE 0.9% 100ML 100 ML IVPB ONE (09:29)
[2017-07-28] MEDS ORDERED: PHENYTOIN SODIUM INJ 250 MG/5 ML VIAL ONE (09:29)
--- NOTE | 2017-07-28 09:33 | CT ---
EXAM DESCRIPTION: Head. CT head without contrast. CLINICAL HISTORY: left sided deficits unknown duration, epilepsy COMPARISON: 06/08/2017 TECHNIQUE: Multiple axial images of the head without contrast. Multiplanar reformatted images. This exam was performed according to our departmental dose-optimization program, which includes automated exposure control, adjustment of the mA and/or kV according to patient size and/or use of iterative reconstruction technique. FINDINGS: Image quality moderately degraded by motion artifact, which limits evaluation. There is no definitive CT evidence of intracranial hemorrhage, mass effect, or large territory infarction. The brain parenchyma and ventricles are grossly unremarkable. There are no abnormal extra-axial fluid collections. Vascular structures are unremarkable. There is no acute calvarial defect. The visualized paranasal sinuses and the mastoids are clear. IMPRESSION: Motion limited exam with no definitive CT evidence of an acute intracranial abnormality. Electronically signed by: Iván Sneed MD 07/28/2017 9:31 AM CDT
[2017-07-28] MEDS ORDERED: OXcarbazepine 300 MG TAB PO ONE (10:17)
[2017-07-28] MEDS ORDERED: lamoTRIgine 100 MG TAB PO ONE (10:18)
[2017-07-28] MEDS: PHENYTOIN SODIUM CAP EXTENDED 100 MG CAP PO ONE ×2 (10:24→10:32)
[2017-07-28] MEDS ORDERED: ASPIRIN (CHEWABLE) 81 MG TAB PO ONE (10:25)
[2017-07-28] MEDS ORDERED: SODIUM CHLORIDE 0.9% 1000ML 1,000 ML IVS ONE (10:35)
[2017-07-28 11:29] VITALS: BP 132/78
[2017-07-28 11:41] VITALS: O2SAT 97
[2017-07-28] MEDS ORDERED: ALTEPLASE 100 ML ONE (13:42)
== END 2017-07-28 11:51 | disposition short-term general hospital (02) ==
LOC: ER 08:23
DX: I63.9 Cerebral infarction, unspecified (principal); G40.909 Epilepsy, unspecified, not intractable, without status epilepticus; Z87.820 Personal history of traumatic brain injury; I10 Essential (primary) hypertension; F17.200 Nicotine dependence, unspecified, uncomplicated; Z79.899 Other long term (current) drug therapy
CPT/HCPCS: 36415; 70450; 71010; 80053; 80185; 81001; 82550; 82553; 83605; 83735; 83880; 84484; 85025; 85379; 85610; 85730; 93005; J2060; J7030; J7050

== ENCOUNTER → 2017-08-14 | Outpatient (CLI) | payer MEDICARE | END | disposition home or self-care (01) | LOC: GMAH 11:58 | PROVIDERS: ATTEND Family Medicine | DX: R56.1 Post traumatic seizures (principal) ==

== ENCOUNTER → 2017-09-11 | Outpatient (CLI) | payer MEDICARE | END | disposition home or self-care (01) | LOC: GMAH 16:42 | PROVIDERS: ATTEND Family Medicine | DX: R56.9 Unspecified convulsions (principal) ==

== ENCOUNTER → 2017-10-06 | Outpatient (CLI) | payer MEDICARE | END | disposition home or self-care (01) | LOC: GMAH 14:37 | PROVIDERS: ATTEND Family Medicine | DX: N30.00 Acute cystitis without hematuria (principal) ==

== ENCOUNTER → 2017-10-07 | Outpatient (CLI) | payer MEDICARE ==
--- NOTE | 2017-10-07 19:28 | CT ---
EXAM DESCRIPTION: Abdoment/Pelvis w/o Contrast CLINICAL HISTORY: CALCULUS OF KIDNEY COMPARISON: None Available. TECHNIQUE: Contiguous axial images of the abdomen and pelvis were obtained followed by reconstruction images. This exam was performed according to our departmental dose-optimization program, which includes automated exposure control, adjustment of the mA and/or kV according to patient size and/or use of iterative reconstruction technique. FINDINGS: There is colonic diverticulosis without evidence of diverticulitis. Bilateral breast implants are partially seen. Small periumbilical hernia is present but contains only fat and no bowel. There is a 5 mm nodule at the lateral aspect of the lingula. The liver, spleen, pancreas and kidneys are otherwise within normal limits. There is no hydronephrosis or renal stones. The gallbladder is not well seen. Adrenal glands are within normal limits. Aorta is of normal caliber and tapering. There is no free fluid in the abdomen or pelvis. There is no bowel obstruction. There is no stranding of the mesenteric fat to suggest an inflammatory response. There is no pericecal inflammation. IMPRESSION: No acute intra-abdominal abnormality. Electronically signed by: Nolberto Winston 10/07/2017 7:27 PM [employer]
== END | disposition home or self-care (01) ==
LOC: CT 09:47
PROVIDERS: ATTEND Family Medicine
DX: N20.0 Calculus of kidney (principal)

== ENCOUNTER 2017-10-13 10:03 | Emergency (ER) | payer MEDICARE ==
[2017-10-13 10:11] VITALS: TEMP 97.7
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
[2017-10-13] MEDS ORDERED: MORPHINE SULFATE INJ 10 MG/ML VIAL IV ONE (10:33)
[2017-10-13] MEDS ORDERED: fentaNYL CITRATE INJ 50 MCG/ML AMP IV ONE (11:10)
--- NOTE | 2017-10-13 11:33 | RAD ---
EXAM DESCRIPTION: Chest,1 View CLINICAL HISTORY: bruising COMPARISON: July 28, 2017 Findings: Single upright portable frontal view of the chest. Cardiomediastinal silhouette and pulmonary vascularity are within normal limits. Lungs are clear without focal consolidative infiltrates. No pleural effusion. No pneumothorax. No acute osseous abnormality. IMPRESSION: No radiographic evidence for acute cardiopulmonary process. Electronically signed by: Gene Mahan MD 10/13/2017 11:31 AM [facility]
--- NOTE | 2017-10-13 12:12 | CT ---
EXAM DESCRIPTION: CT abdomen and pelvis with contrast CLINICAL HISTORY: Flank pain. Renal stone disease COMPARISON: 10/07/2017 and 07/25/2017 TECHNIQUE: Contrast-enhanced spiral CT with intravenous iodinated nonionic contrast. Coronal and sagittal reformatted images. This exam was performed according to our departmental dose-optimization program, which includes automated exposure control, adjustment of the mA and/or kV according to patient size and/or use of iterative reconstruction technique. FINDINGS: 3 mm subpleural probable postinflammatory nodule inferior lingula left upper lobe, stable Normal heart size. Liver is normal. Previous cholecystectomy. No biliary duct dilation. Spleen, pancreas, adrenal glands are normal No renal abnormality. No renal, ureteral or bladder calculus No mass lesion or inflammatory process in the stomach, small or large intestine. Scattered diverticula of the descending and sigmoid colon without diverticulitis. No pelvic soft tissue mass lesion adenopathy or free fluid. Omentum, mesentery and retroperitoneum are unremarkable. Small supraumbilical abdominal wall hernia containing only omental fat. This is stable No acute bony abnormality IMPRESSION: Diverticulosis without diverticulitis No diagnostic acute inflammatory process in the abdomen or pelvis. No renal stone disease Electronically signed by: Tez Hu MD 10/13/2017 12:11 PM DIABETES TRAINER
[2017-10-13 14:51] VITALS: O2SAT 99
[2017-10-13 14:53] VITALS: BP 115/77
== END 2017-10-13 14:45 | disposition home or self-care (01) ==
LOC: ER 10:03
DX: S80.10XA Contusion of unspecified lower leg, initial encounter (principal); R10.9 Unspecified abdominal pain; I10 Essential (primary) hypertension; Z87.820 Personal history of traumatic brain injury; Z98.61 Coronary angioplasty status; Z91.040 Latex allergy status; Z79.02 Long term (current) use of antithrombotics/antiplatelets
CPT/HCPCS: 36415; 71010; 74177; 80048; 80076; 80185; 81001; 82550; 82553; 84484; 85025; 85384; 85610; 85730; 87086; 93005; J3010

== ENCOUNTER 2017-12-04 08:34 | Observation (INO) | payer MEDICARE ==
[2017-12-04] MEDS ORDERED: SODIUM CHLORIDE 0.9% 10 ML VIAL ONE (08:41)
[2017-12-04] MEDS ORDERED: SODIUM CHLORIDE 0.9% (FLUSH) 10 ML SYG IV PRN ×2 (08:47→12:27)
--- NOTE | 2017-12-04 08:52 | ED.PDOC ---
History of Present Illness - General Chief Complaint: Neuro Symptoms/Deficits Stated Complaint: SEIZURE Time Seen by Provider: 12/04/17 08:47 Source: family - History of Present Illness Initial Comments: PT PRESENTS VIA EMS FOR SEIZURES THAT BEGAN THIS AM AT HOME. PT HAS A HISTORY OF SEIZURE DISORDER AND TAKES EXTENDED RELEASE DILANTIN. PTS STATES THAT PATIENT HAD A SEIZURE AT HOME AND WAS GIVEN PO ATIVAN. PT CONTINUED TO HAVE SEIZURES AND WAS GIVEN IM VALIUM BY EMS. PTS REPORTS RECENT CARDIAC STENT PLACEMENT WITHOUT INCIDENT, RECENT CHANGE TO EXTENDED RELEASE DILANTIN AND DENIES ANY RECENT ILLNESS OR COMPLAINTS. PT ACTIVELY SEIZING ON ARRIVAL TO THE ED AND REQUIRES MY IMMEDIATE ATTENTION. HPI AND ROS LIMITED DUE TO PATIENTS MENTAL STATUS. Timing/Duration: 1-3 hours Severity: moderate Associated Symptoms: denies symptoms Allergies/Adverse Reactions: Allergies Latex Allergy (Verified 12/04/17 09:11) Anaphylaxis New allergy reported 10/27/14 Levetiracetam [From [facility]] Allergy (Verified 12/04/17 09:11) Home Medications: Ambulatory Orders Lamotrigine 200 mg PO BID 06/08/17 Phenytoin Sodium Cap Extended [Dilantin Cap] 300 mg PO BEDTIME 07/25/17 Clopidogrel Bisulfate 75 mg PO DAILY 10/13/17 LORazepam [Ativan] 0.5 mg PO QID PRN 10/13/17 Lisinopril 5 mg PO DAILY 10/13/17 Atorvastatin Calcium [Lipitor] 40 mg PO DAILY 12/04/17 Review of Systems - Review of Systems Constitutional: States: see HPI EENTM: States: see HPI Respiratory: States: see HPI Cardiology: States: see HPI Gastrointestinal/Abdominal: States: see HPI Genitourinary: States: see HPI Musculoskeletal: States: see HPI Skin: States: see HPI Neurological: States: see HPI Endocrine: States: see HPI Hematologic/Lymphatic: States: see HPI 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 Hx Stroke: No Hx Asthma: No Hx of COPD: No Hx Cardiac Disorders: Yes Hx Congestive Heart Failure: No Hx Pacemaker: No Hx Hypertension: Yes Hx Diabetes: No Hx Cancer: No Hx Hepatitis C: No Hx MRSA: Yes MRSA Source:: Wound - Vaccination History Hx Tetanus, Diphtheria Vaccination: Yes Hx Influenza Vaccination: Yes Hx Pneumococcal Vaccination: Yes - Social History Hx Tobacco Use: No Hx Alcohol Use: No Hx Substance Use: No Hx Substance Use Treatment: No Hx Depression: No - Female History Patient : No Family Medical History - Family History Mother Family History: No Known Living Status: Age at (years of age): 65 Hx Family Cancer: Yes - lung Father Family History: Unknown Living Status: Still Living Hx Family Diabetes: Yes Hx Family;Other: Adopted; unknown family hx Physical Exam - Physical Exam General Appearance: Well Developed, Well Groomed, Well Hydrated, Other - UNRESPONSIVE, ACTIVELY SEIZING Eye Exam: bilateral normal ENT Exam: pharynx normal, other - HEMATOMA TO TIP OF TONGUE WITH DRIED BLOOD AROUND MOUTH Neck: full range of motion, supple Respiratory: lungs clear, normal breath sounds, no respiratory distress Cardiovascular/Chest: no murmur, tachycardia Gastrointestinal/Abdominal: soft, no organomegaly Extremities Exam: no evidence of injury 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 NO FURTHER SEIZURE ACTIVITY AFTER RECIEVING 2MG IV ATIVAN. LAB FINDINGS DISCUSSED WITH SWITCHBOARD OPERATOR HELPER AT BEDSIDE. - Results/Orders Results/Orders: 12/04/17 08:47 Sodium Chloride 0.9% (Flush) [Saline Flush Syringe] 10 ml IV PRN PRN Sodium Chloride 0.9% 1000ML [Ns 1000 ml] 1,000 ml IVS .QD 12/04/17 08:48 IV Care:Saline Lock per Protoc QSHIFT Telemetry Q4H URINE DRUG SCREEN, 7 ASSAY Stat 12/04/17 08:49 UA [URINALYSIS] Stat 12/04/17 08:52 CARDIAC ENZYME GROUP Stat COMPLETE METABOLIC PROFILE Stat 12/04/17 09:00 EKG STAT Laboratory Results - last 24 hr 12/04/17 12/04/17 12/04/17 08:52 08:52 08:52 WBC 9.6 RBC 4.63 Hgb 13.5 Hct 41.7 MCV 90.0 MCH 29.2 MCHC 32.5 L RDW 13.3 Plt Count 254 MPV 9.0 Absolute Neuts (auto) 5.50 Absolute Lymphs (auto) 3.50 H Absolute Monos (auto) 0.40 Absolute Eos (auto) 0.10 Absolute Basos (auto) 0.10 Neutrophils % 57.7 Lymphocytes % 36.5 Monocytes % 4.2 Eosinophils % 0.7 L Basophils % 0.9 PT 11.0 INR 0.970 PTT (SP) 18.7 L Sodium 133 L Potassium 3.3 L Chloride 100 L Carbon Dioxide 18 L Anion Gap 18.3 H BUN 11 Creatinine 0.65 BUN/Creatinine Ratio 16.9 Random Glucose 248 H Serum Osmolality 274.1 L Calcium 8.8 Total Bilirubin 0.3 AST 27 ALT 13 Alkaline Phosphatase 149 H Creatine Kinase 51 CK-MB (CK-2) 1.3 Troponin I < 0.02 Serum Total Protein 7.2 Albumin 4.1 Globulin 3.1 Albumin/Globulin Ratio 1.3 Serum HCG, Qual Phenytoin 12/04/17 12/04/17 08:52 08:52 WBC RBC Hgb Hct MCV MCH MCHC RDW Plt Count MPV Absolute Neuts (auto) Absolute Lymphs (auto) Absolute Monos (auto) Absolute Eos (auto) Absolute Basos (auto) Neutrophils % Lymphocytes % Monocytes % Eosinophils % Basophils % PT INR PTT (SP) Sodium Potassium Chloride Carbon Dioxide Anion Gap BUN Creatinine BUN/Creatinine Ratio Random Glucose Serum Osmolality Calcium Total Bilirubin AST ALT Alkaline Phosphatase Creatine Kinase CK-MB (CK-2) Troponin I Serum Total Protein Albumin Globulin Albumin/Globulin Ratio Serum HCG, Qual Negative Phenytoin 8.5 L - EKG/XRAY/CT EKG: Sinus - @93BPM, NL INTERVALS, NL AXIS, , no ST T wave changes, Unchanged from - 10/13/17 Departure - Departure Clinical Impression: Recurrent seizures, Subtherapeutic phenytoin level Time of Disposition: 10:39 Disposition: Admit Patient Condition: Fair Departure Forms: ED Discharge - Pt. Copy, Patient Portal Self Enrollment Referrals: Shay Hartman MD [Primary Care Provider] - 1-2 Weeks Home Medications: Ambulatory Orders Lamotrigine 200 mg PO BID 06/08/17 Phenytoin Sodium Cap Extended [Dilantin Cap] 300 mg PO BEDTIME 07/25/17 Clopidogrel Bisulfate 75 mg PO DAILY 10/13/17 LORazepam [Ativan] 0.5 mg PO QID PRN 10/13/17 Lisinopril 5 mg PO DAILY 10/13/17 Atorvastatin Calcium [Lipitor] 40 mg PO DAILY 02/08/18 Decision To Admit - Decistion To Admit Decision to Admit Reason: Admit from ER Decision to Admit Date: 12/04/17 Decision to Admit Time: 10:39 - CASE DISCUSSED WITH JOHN BOONE NP WHO AGREES TO ADMIT
[2017-12-04] MEDS: SODIUM CHLORIDE 0.9% 1000ML 1,000 ML IVS PRN ×3 (09:42→23:31)
[2017-12-04] MEDS ORDERED: PHENYTOIN SODIUM INJ 100 MG/2 ML VIAL IV ONE (09:58)
[2017-12-04] MEDS ORDERED: SODIUM CHLORIDE 0.9% 100ML 100 ML IVPB ONE (10:08)
--- NOTE | 2017-12-04 11:16 | HP ---
SUPERVISING PHYSICIAN: Tez Guerrero MD CHIEF COMPLAINT: Seizures. HISTORY OF PRESENT ILLNESS: This is a 52-year-old female patient who has a significant history of seizures as well as frequent admission to the Emergency Room due to breakthrough seizures. She was at home in her usual state of health. Her significant other witness her having a seizure. Recently, she has been to her neurologist and he changed her to a long-acting Dilantin and her partner was unsure if she had actually been taking her medications appropriately. He called 911 and she was brought to the Emergency Room. In the Emergency Room, her CBC was basically within normal limits. Her sodium was slightly low at 133 with a potassium of 3.3, chloride 100, carbon dioxide 18, anion 18.3, creatinine 0.65, BUN 11. Glucose 248, magnesium 1.9, alkaline phosphatase 149. Her Dilantin level was low at 8.5. She was given multiple doses of Ativan in the Emergency Room to stop her seizure activity. She was also given a dosing of IV Dilantin and I was called for hospital admission. Review of symptoms and medical history is limited due to the patient's mental status and most of her history was obtained via the EMR or from her partner. PAST MEDICAL HISTORY: 1. Seizure disorder. 2. Anxiety. 3. Depression. 4. Hypertension. 5. Coronary artery disease. PAST SURGICAL HISTORY: 1. Appendectomy. 2. Uvulopalatopharyngoplasty. 3. Recent stent placement times 2 in September of 2017. OUTPATIENT MEDICATIONS: Per the EMR and awaiting verification. ALLERGIES: NO KNOWN DRUG ALLERGIES. FAMILY HISTORY: Unknown. SOCIAL HISTORY: She is retired. She is single. She smokes about 1/2 to 1 pack of cigarettes daily. There is no history of ETOH or illicit drug use. REVIEW OF SYSTEMS: Unable to obtain due to the patient's current mental status. PHYSICAL EXAMINATION: VITAL SIGNS: Afebrile. Heart rate 94. Blood pressure 132/79. Respiratory rate 20. O2 saturation 100% on room air. GENERAL: This is a 52-year-old female patient lying in her hospital bed. At this point, she is postictal. HEENT: Normocephalic, atraumatic. Pupils are equal and reactive. Oropharynx is clear. Oral mucous membranes are moist. NECK: Supple without mass. RESPIRATORY: Clear to auscultation bilaterally. CHEST: There is equal rise and fall of the chest with inspiration and expiration. CARDIOVASCULAR: Regular rate and rhythm. ABDOMEN: Soft, nondistended, nontender. Bowel sounds are positive. EXTREMITIES: No cyanosis, clubbing or edema. NEUROLOGIC: She is obtunded. She moans to noxious stimuli. She is postictal, but does become somewhat agitated and combative with stimulation. SKIN: Warm and dry with no lesions noted. LABORATORY: Labs and films are as per history of present illness. ASSESSMENT: 1. Seizure disorder with history of frequent breakthrough seizures and subtherapeutic Dilantin level. 2. Altered mental status secondary to #1 and benzodiazepine administration. 3. Coronary artery disease with recent history of stent placement in September of 2017. 4. Hypertension. 5. Depression. 6. Anxiety. PLAN: We will place the patient in observation and monitor her closely. Neuro checks have been ordered. I have restarted her medications although that may be problematic for now as she would not be able to take p.o. medications, so we will monitor how well she wakes up. I have ordered routine lab and a Dilantin level in the morning. I also gave her some pottasium replacement. She also has p.r.n. Ativan in case she has another seizure. She received some Dilantin in the Emergency Room, so I will wait and see what her level is for the morning. If there is a problem, we may need to call her neurologist in [place]. Otherwise, we will continue to monitor the patient closely and follow as needed. Dr. Guerrero is the collaborating physician and available for consultation. #[id number] [facility]
[2017-12-04] MEDS ORDERED: LEVALBUTEROL NEBS 1.25 MG/3 ML VIAL INH PRN (12:27)
[2017-12-04] MEDS ORDERED: KCL 20MEQ/WATER FOR INJ 100ML 20 MEQ in PREMIX BAG 1 BAG IVPB ONE (12:29)
[2017-12-04] MEDS ORDERED: PANTOPRAZOLE SODIUM IV 40 MG VIAL IV SCH (12:30)
[2017-12-04] MEDS ORDERED: IV SET AND CAP CHANGE INJ INJ SCH (12:30)
[2017-12-04] MEDS ORDERED: KCL 20MEQ/WATER FOR INJ 100ML 100 ML IVPB ONE (13:43)
[2017-12-04] MEDS: ENOXAPARIN SODIUM 40 MG/0.4 ML SYG SUBCU SCH (13:49)
[2017-12-04] MEDS ORDERED: PHENYTOIN SODIUM CAP EXTENDED 100 MG CAP PO SCH (21:00)
[2017-12-04] MEDS: lamoTRIgine 100 MG TAB PO SCH (21:11)
[2017-12-05 05:37] VITALS: BP 102/65; TEMP 97
[2017-12-05] MEDS: lamoTRIgine 100 MG TAB PO SCH (08:04)
[2017-12-05] MEDS: ENOXAPARIN SODIUM 40 MG/0.4 ML SYG SUBCU SCH (08:04)
[2017-12-05] MEDS ORDERED: LISINOPRIL 5 MG TAB PO SCH (09:00)
[2017-12-05] MEDS ORDERED: CLOPIDOGREL 75 MG TAB PO SCH (09:00)
--- NOTE | 2017-12-05 09:13 | DS ---
SUPERVISING PHYSICIAN: Tez Guerrero MD DISCHARGE DIAGNOSIS: 1. Seizure disorder with history of frequent breakthrough seizures and subtherapeutic Dilantin level. 2. Altered mental status secondary to #1 and benzodiazepine administration. 3. Coronary artery disease with recent history of stent placement in September of 2017. 4. Hypertension. 5. Depression. 6. Anxiety. HISTORY OF PRESENT ILLNESS: This is a 52-year-old female patient who has a significant history of seizures as well as frequent breakthrough seizures. She presented to the Emergency Room due to a witnessed seizure at home. Her boyfriend witnessed the seizure, called 911 and brought her to the Emergency Room to stop her seizure activity. She received several doses of Ativan. Her CBC was basically within normal limits. Her sodium was slightly low at 133 with a potassium of 3.3, chloride 100, carbon dioxide 18, anion 18.3, creatinine 0.65, BUN 11. Glucose 248, magnesium 1.9, alkaline phosphatase 149. Her Dilantin level was low at 8.5. She was also given a dosing of IV Dilantin and I was called for hospital admission. HOSPITAL COURSE: After several hours on the Floor, the patient was more arousable. She actually became more coherent by the evening and this morning, she was in her usual state of health. She has had no seizure activity since admission and she can be discharged home in stable condition. DISCHARGE PLAN: The patient will be discharged home in stable condition. She is to resume her previous activity and her diet. She has an appointment with Dr. Hartman on 12/10/17 at 2 PM. We will need another Dilantin level drawn at that time. They were unable to get lab this morning and the patient refused to be stuck again. She will followup with Dr. Hartman next week. She is to return to the hospital or followup with Dr. Hartman's office for any further problems or complaints. DISCHARGE MEDICATIONS: 1. Lamotrigine. 2. Phenytoin. 3. Plavix. 4. Lisinopril. 5. Lorazepam. 6. Lipitor. Dr. Guerrero is the collaborating physician and available for consultation. #[id number] [facility]
[2017-12-05 11:22] VITALS: O2SAT 95
[2017-12-05] MEDS ORDERED: PANTOPRAZOLE SODIUM TAB 40 MG PO SCH (11:30)
[2017-12-05] MEDS ORDERED: ATORVASTATIN 20 MG TAB PO SCH (21:00)
== END 2017-12-05 09:12 | disposition home or self-care (01) ==
LOC: ER 08:34 → INTOOBSV 11:15 → MS 11:15
PROVIDERS: ADMIT Nurse Practitioner Acute Care; ATTEND Nurse Practitioner Acute Care
DX: G40.909 Epilepsy, unspecified, not intractable, without status epilepticus (principal); R89.2 Abnormal level of other drugs, medicaments and biological substances in specimens from other organs, systems and tissues; R41.82 Altered mental status, unspecified; I25.10 Atherosclerotic heart disease of native coronary artery without angina pectoris; I10 Essential (primary) hypertension; F32.9 Major depressive disorder, single episode, unspecified; F41.9 Anxiety disorder, unspecified; E87.1 Hypo-osmolality and hyponatremia; F17.210 Nicotine dependence, cigarettes, uncomplicated; Z66 Do not resuscitate; Z95.5 Presence of coronary angioplasty implant and graft; Z79.02 Long term (current) use of antithrombotics/antiplatelets; Z79.899 Other long term (current) drug therapy; Z88.8 Allergy status to other drugs, medicaments and biological substances; Z91.040 Latex allergy status
CPT/HCPCS: 36415; 80053; 80185; 81001; 82550; 82553; 83735; 84484; 84703; 85025; 85610; 85730; 87070; 93005; 94760 ×5; 96372; 96374; 96375 ×2; 96376 ×3; 99284; G0378; J1650; J2060 ×4; J3480; J7030 ×3; J7050

== ENCOUNTER → 2017-12-10 | Outpatient (CLI) | payer MEDICARE | LOC: GMAH 11:14 | PROVIDERS: ATTEND Family Medicine | DX: R56.1 Post traumatic seizures (principal) ==

== ENCOUNTER → 2018-01-14 | Outpatient (CLI) | payer MEDICARE | LOC: GMAH 11:20 | PROVIDERS: ATTEND Family Medicine | DX: R56.1 Post traumatic seizures (principal) ==

== ENCOUNTER → 2018-07-13 | Outpatient (CLI) | payer MEDICARE | LOC: GMAH 14:25 | PROVIDERS: ATTEND Family Medicine | DX: N30.00 Acute cystitis without hematuria (principal) ==

== ENCOUNTER → 2018-07-21 | Outpatient (CLI) | payer MEDICARE | LOC: GMATM 21:12 | PROVIDERS: ATTEND Nurse Practitioner Family | DX: N39.0 Urinary tract infection, site not specified (principal) ==

== ENCOUNTER → 2018-07-22 | Outpatient (CLI) | payer MEDICARE ==
--- NOTE | 2018-07-23 08:51 | CT ---
EXAM DESCRIPTION: Abdoment/Pelvis w/o Contrast CLINICAL HISTORY: GROSS HEMATURIA COMPARISON: October 13, 2017 TECHNIQUE: CT of the abdomen and Pelvis was performed without IV contrast. This exam was performed according to our departmental dose-optimization program, which includes automated exposure control, adjustment of the mA and/or kV according to patient size and/or use of iterative reconstruction technique. FINDINGS: There is no left or right-sided urinary tract calculus, hydronephrosis or perinephric inflammation. No renal contour abnormality or apparent renal mass given the limitations imposed by noncontrast technique. No bladder wall thickening or bladder mass. A tiny amount of gas is noted in the bladder, probably related to recent instrumentation. The uterus and ovaries are not identified, correlate with surgical history. Colonic diverticulosis is noted without diverticulitis. No evidence of appendicitis. The gallbladder is either collapsed or surgically absent. No calcified gallstone in the common bile duct. Bilateral breast implants are noted with lobulated contour of the implant capsules bilaterally only partially visualized. No lung base abnormality. The liver, spleen, pancreas and adrenals are unremarkable for noncontrast technique. No dilated small bowel loops. No concerning bone lesion. Incidentally noted is a tiny fat-containing umbilical hernia without acute complication. IMPRESSION: Tiny amount of gas in the bladder likely related to recent instrumentation. No urinary tract calculus, hydronephrosis, bladder wall thickening or additional abnormality to explain patient's symptoms. Colonic diverticulosis without diverticulitis. Tiny uncomplicated fat containing umbilical hernia. Bilateral breast implants only partially visualized with lobulated implant capsule contours suggesting the possibility of bilateral implant rupture. Electronically signed by: Golden Smith MD 07/23/2018 8:50 AM CDT
== END ==
LOC: CT 14:32
PROVIDERS: ATTEND Family Medicine
DX: R31.0 Gross hematuria (principal); K57.30 Diverticulosis of large intestine without perforation or abscess without bleeding; K42.9 Umbilical hernia without obstruction or gangrene

== ENCOUNTER → 2018-08-17 | Outpatient (CLI) | payer MEDICARE | LOC: GMA 15:07 | PROVIDERS: ATTEND Family Medicine | DX: R11.0 Nausea (principal) ==

== ENCOUNTER → 2018-08-24 | Outpatient (CLI) | payer MEDICARE | LOC: GMAH 12:00 | PROVIDERS: ATTEND Family Medicine | DX: R56.9 Unspecified convulsions (principal) ==

== ENCOUNTER 2018-10-10 10:55 | Emergency (ER) | payer MEDICARE ==
[2018-10-10 11:06] VITALS: TEMP 97.9
--- NOTE | 2018-10-10 11:16 | ED.PDOC ---
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 Timing/Duration: 1-3 hours Severity: moderate Improving Factors: nothing Worsening Factors: nothing Associated Symptoms: other - see hpi Allergies/Adverse Reactions: Allergies Latex Allergy (Verified 12/04/17 09:11) Anaphylaxis New allergy reported 10/27/14 Levetiracetam [From [facility]] Allergy (Verified 12/04/17 09:11) Home Medications: Ambulatory Orders Lamotrigine 300 mg PO BID 06/08/17 Phenytoin Sodium Cap Extended [Dilantin Cap] 200 mg PO DAILY 07/25/17 Clopidogrel Bisulfate 75 mg PO DAILY 10/13/17 LORazepam [Ativan] 0.5 mg PO TID PRN 10/13/17 Lisinopril 5 mg PO DAILY 10/13/17 Atorvastatin Calcium [Lipitor] 40 mg PO DAILY 12/04/17 Aspirin [Aspirin Adult Low Dose] 81 mg PO DAILY 10/10/18 Nitroglycerin 0.4 mg SL PRN 10/10/18 Phenytoin Sodium Extended [Dilantin] 30 mg PO DAILY 10/10/18 Review of Systems - Review of Systems Neurological: States: see HPI, seizure Unable to Obtain Due To: clinical condition - post ictal state 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 Hx Stroke: No Hx Asthma: No Hx of COPD: No Hx Cardiac Disorders: Yes - [place] Hx Congestive Heart Failure: No Hx Pacemaker: No Hx Hypertension: Yes Hx Diabetes: No Hx Cancer: No Hx Hepatitis C: No Hx MRSA: Yes MRSA Source:: Wound Surgical History: appendectomy, other - cardiac stent LAD - Vaccination History Hx Tetanus, Diphtheria Vaccination: Yes Hx Influenza Vaccination: Yes Hx Pneumococcal Vaccination: Yes - Social History Hx Tobacco Use: No Hx Alcohol Use: No Hx Substance Use: No Hx Substance Use Treatment: No Hx Depression: No - Female History Patient : No Family Medical History - Family History Mother Family History: No Known Living Status: Age at (years of age): 65 Hx Family Cancer: Yes - lung Father Family History: Unknown Living Status: Still Living Hx Family Diabetes: Yes Hx Family;Other: Adopted; unknown family hx Physical Exam - Physical Exam General Appearance: Other - somnolent but opens eyes when talked to cooperates with exam but not talking Eye Exam: bilateral other - PERRL,normal eyegrounds ENT Exam: normal ENT inspection, TMs normal, pharynx normal, other - no dental or soft tissue injury intraorally Neck: non-tender, normal inspection, trachea midline Respiratory: chest non-tender, lungs clear, normal breath sounds Cardiovascular/Chest: normal peripheral pulses, regular rate, rhythm, no murmur Peripheral Pulses: radial,right: 2+, radial,left: 2+ Gastrointestinal/Abdominal: non tender, soft, no organomegaly Back Exam: no CVA tenderness, no vertebral tenderness Extremities Exam: non-tender, normal range of motion, no evidence of injury 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: 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 Motor/Sensory: no motor deficit, no sensory deficit, no pronator drift Skin Exam: normal color, warm/dry, other - soft tissue swellingleft fronto-tm poral area Progress - Progress Progress: 10/10/18 11:27 Vital Signs - 8 hr 10/10/18 10:58 Temperature 97.9 F Pulse Rate [ 88 Left Brachial] Respiratory 20 Rate Blood Pressure 106/62 [Left Arm] O2 Sat by Pulse 95 Oximetry - Results/Orders Results/Orders: 10/10/18 11:28 URINE DRUG SCREEN, 7 ASSAY Stat URINALYSIS Stat 10/10/18 12:15 EKG STAT Laboratory Results - last 24 hr 10/10/18 10/10/18 11:44 12:42 WBC 14.0 H RBC 4.54 Hgb 13.5 Hct 40.9 MCV 90.1 MCH 29.7 MCHC 33.0 RDW 13.0 Plt Count 272 MPV 7.8 Absolute Neuts (auto) 12.50 H Absolute Lymphs (auto) 0.90 L Absolute Monos (auto) 0.50 Absolute Eos (auto) 0.00 Absolute Basos (auto) 0.00 Neutrophils % 89.6 H Lymphocytes % 6.7 L Monocytes % 3.4 Eosinophils % 0.0 L Basophils % 0.3 PT 9.5 INR 0.95 PTT (SP) 22.5 Sodium 134 L Potassium 4.6 Chloride 99 L Carbon Dioxide 27 Anion Gap 12.6 BUN 10 Creatinine 0.58 L BUN/Creatinine Ratio 17.2 Random Glucose 87 Serum Osmolality 266.6 L Calcium 8.6 Magnesium 2.1 Total Bilirubin 0.2 Direct Bilirubin < 0.1 Indirect Bilirubin 0.1 L AST 26 ALT 13 Alkaline Phosphatase 141 H Creatine Kinase 521 H* CK-MB (CK-2) 19.3 H* CK-MB (CK-2) % 3.70 Troponin I 1.84 H* B-Natriuretic Peptide 18.2 Serum Total Protein 6.7 Albumin 3.8 Phenytoin 10.8 - EKG/XRAY/CT EKG: Sinus, no ST T wave changes Comments: HR-89 CT Ordered: Yes - head/c-spine-no fractures or acute abnormalities. Departure - Departure Clinical Impression: Seizure, NSTEMI (non-ST elevation myocardial infarction), History of heart artery stent, History of traumatic brain injury, Elevated troponin level Forehead contusion Qualifiers: Encounter type: initial encounter Qualified Code(s): S00.83XA - Contusion of other part of head, initial encounter Time of Disposition: 13:27 Disposition: Transfer to Hospital Condition: Fair Departure Forms: Patient Portal Self Enrollment Referrals: Shay Hartman MD [Primary Care Provider] - 1-2 Weeks Home Medications: Ambulatory Orders Lamotrigine 300 mg PO BID 06/08/17 Phenytoin Sodium Cap Extended [Dilantin Cap] 200 mg PO DAILY 07/25/17 Clopidogrel Bisulfate 75 mg PO DAILY 10/13/17 LORazepam [Ativan] 0.5 mg PO TID PRN 10/13/17 Lisinopril 5 mg PO DAILY 10/13/17 Atorvastatin Calcium [Lipitor] 40 mg PO DAILY 12/04/17 Aspirin [Aspirin Adult Low Dose] 81 mg PO DAILY 10/10/18 Nitroglycerin 0.4 mg SL PRN 10/10/18 Phenytoin Sodium Extended [Dilantin] 30 mg PO DAILY 10/10/18 Transfer to Outside Facility - Transfer Information Accepting Provider:: Accepting Facility: [facility] 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
[2018-10-10] MEDS ORDERED: LACTATED RINGERS 1,000 ML IVS ONE (11:29)
[2018-10-10] MEDS ORDERED: ASPIRIN (CHEWABLE) 81 MG TAB PO ONE (12:15)
--- NOTE | 2018-10-10 12:19 | CT ---
EXAM DESCRIPTION: Noncontrast head CT CLINICAL HISTORY: 53 years, Female, ams/SZ TECHNIQUE: 5mm slice thickness axial images through the brain were performed in bone and soft tissue windows in the absence of intravenous contrast. This exam was performed according to our departmental dose-optimization program which includes use of Automated Exposure Control, adjustment of the mA and/or kV according to patient size and/or use of iterative reconstruction technique. COMPARISON: Noncontrast head CT dated 07/28/2017 FINDINGS: Involutional changes are age appropriate. Within the brain, there is no significant area of abnormal attenuation, mass effect, midline shift or sulcal effacement. Ventricles are normal in size for patient age. The basal cisterns are patent. The visualized paranasal sinuses and mastoid air cells are patent. No fracture is present. IMPRESSION: No finding explains this patient's altered mental status or seizure. No evidence of acute traumatic intracranial injury status post seizure. Electronically signed by: Merissa Martin MD 10/10/2018 12:18 PM [facility]
--- NOTE | 2018-10-10 12:28 | CT ---
EXAM DESCRIPTION: Cervical Spine CLINICAL HISTORY: 53 years Female, ams/SZ COMPARISON: None. TECHNIQUE: 2 mm slice thickness axial images in bone and soft tissue windows along with coronal and sagittal reconstructions were obtained without intravenous contrast. This exam was performed according to our departmental dose-optimization program which includes use of Automated Exposure Control, adjustment of the mA and/or kV according to patient size and/or use of iterative reconstruction technique. FINDINGS: There is no prevertebral soft tissue swelling. Vertebral body heights are maintained. The spinolaminar line is intact. The atlantoaxial interval is normal and C1 is well aligned with the skull base. No fracture is identified. Of note, there are some small well-corticated osteophytes abutting the anterior and inferior endplates of the C4 and C5 vertebrae that are not consistent with acute fractures. The normal cervical lordosis is accentuated. Degenerative changes are also present causing disc space narrowing, bony proliferation and minimal listheses. Level by level analysis are as below: C2-C3: No central canal or neural foraminal stenosis. C3-C4: No central canal or neural foraminal stenosis. C4-C5: Small disc bulge. Uncovertebral hypertrophy more prominent on the RIGHT. Findings cause mild RIGHT neural foraminal stenosis. C5-C6: Facet hypertrophy causes mild to moderate bilateral neural foraminal stenosis. C6-C7: Facet hypertrophy causes mild neural foraminal stenosis. C7-T1: No significant central canal or neural foraminal stenosis. Unremarkable thyroid gland. No apical pneumothorax. Patent central airway. IMPRESSION: No visualized acute cervical spine fracture. [id number] degenerative changes in the cervical spine as described above. Electronically signed by: Merissa Martin MD 10/10/2018 12:[address] [facility]
[2018-10-10 13:38] VITALS: BP 123/78
[2018-10-10 13:42] VITALS: O2SAT 97
== END 2018-10-10 13:43 | disposition short-term general hospital (02) ==
LOC: ER 10:55
DX: I21.4 Non-ST elevation (NSTEMI) myocardial infarction (principal); R56.9 Unspecified convulsions; Z95.5 Presence of coronary angioplasty implant and graft; R79.89 Other specified abnormal findings of blood chemistry; I25.2 Old myocardial infarction; I10 Essential (primary) hypertension; Z87.820 Personal history of traumatic brain injury; Z79.82 Long term (current) use of aspirin; Z79.899 Other long term (current) drug therapy; Z88.8 Allergy status to other drugs, medicaments and biological substances; Z91.040 Latex allergy status
CPT/HCPCS: 36415; 70450; 72125; 80048; 80076; 80185; 82550; 82553; 83880; 84484; 85025; 85610; 85730; 93005; J7120

== ENCOUNTER → 2018-11-23 | Outpatient (CLI) | payer MEDICARE | LOC: GMAH 10:26 | PROVIDERS: ATTEND Family Medicine | DX: R56.9 Unspecified convulsions (principal) ==

== ENCOUNTER → 2019-02-02 | Outpatient (CLI) | payer MEDICARE | LOC: GMAH 14:38 | PROVIDERS: ATTEND Family Medicine | DX: R11.0 Nausea (principal) ==

== ENCOUNTER → 2019-06-10 | Outpatient (CLI) | payer MEDICARE | LOC: GMA MATASK 16:54 | PROVIDERS: ATTEND Family Medicine | DX: R56.9 Unspecified convulsions (principal) ==

== ENCOUNTER 2019-08-29 12:25 | Emergency (ER) | payer MEDICARE ==
[2019-08-29] MEDS ORDERED: KETOROLAC TROMETHAMINE INJ 30 MG/ML VIAL IV ONE (12:50)
[2019-08-29] MEDS ORDERED: SODIUM CHLORIDE 0.9% (FLUSH) 10 ML SYG IV PRN (12:50)
[2019-08-29] MEDS ORDERED: SODIUM CHLORIDE 0.9% 1000ML 1,000 ML IVS PRN (12:50)
[2019-08-29] MEDS ORDERED: DICYCLOMINE HCL INJ 20 MG/2 ML AMP IM ONE (12:51)
[2019-08-29] MEDS ORDERED: cefTRIAXone SODIUM 1 GM in SODIUM CHL 0.9% 50ML MIN-BAG+ 50 ML IVPB ONE (13:13)
[2019-08-29] MEDS ORDERED: cefTRIAXone SODIUM 1 GM VIAL ONE (13:30)
[2019-08-29] MEDS ORDERED: SODIUM CHL 0.9% 50ML MIN-BAG+ 50 ML IVPB ONE (13:31)
--- NOTE | 2019-08-29 16:03 | ED.PDOC ---
History of Present Illness - General Chief Complaint: Problem Stated Complaint: right flank pain,incontinence Time Seen by Provider: 08/29/19 12:39 - History of Present Illness Initial Comments: c/o having R lumbar paina associated with increase frequency and burning of urination for 1-2 days Quality: moderate, sharpness Radiation: right flank Improving Factors: nothing Worsening Factors: nothing Associated Symptoms: dysuria, urinary frequency Allergies/Adverse Reactions: Allergies Latex Allergy (Verified 12/04/17 09:11) Anaphylaxis New allergy reported 10/27/14 Levetiracetam [From [facility]] Allergy (Verified 12/04/17 09:11) Home Medications: Ambulatory Orders Lamotrigine 300 mg PO BID 06/08/17 Phenytoin Sodium Cap Extended [Dilantin Cap] 200 mg PO DAILY 07/25/17 Clopidogrel Bisulfate 75 mg PO DAILY 10/13/17 LORazepam [Ativan] 0.5 mg PO TID PRN 10/13/17 Lisinopril 5 mg PO DAILY 10/13/17 Atorvastatin Calcium [Lipitor] 40 mg PO DAILY 12/04/17 Aspirin [Aspirin Adult Low Dose] 81 mg PO DAILY 10/10/18 Nitroglycerin 0.4 mg SL PRN 10/10/18 Phenytoin Sodium Extended [Dilantin] 30 mg PO DAILY 10/10/18 Ciprofloxacin HCl [Cipro] 500 mg PO BID #14 tab 08/29/19 Naproxen [Naprosyn] 500 mg PO BID #10 tab 08/29/19 Review of Systems - Review of Systems Constitutional: States: no symptoms reported EENTM: States: no symptoms reported Respiratory: States: no symptoms reported Cardiology: States: no symptoms reported Gastrointestinal/Abdominal: States: see HPI Genitourinary: States: see HPI Musculoskeletal: States: no symptoms reported Skin: States: no symptoms reported Neurological: States: no symptoms reported Endocrine: States: no symptoms reported Hematologic/Lymphatic: States: no symptoms reported 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 Hx Stroke: No Hx Asthma: No Hx of COPD: No Hx Cardiac Disorders: Yes - [place] Hx Congestive Heart Failure: No Hx Pacemaker: No Hx Hypertension: Yes Hx Diabetes: No Hx Cancer: No Hx Hepatitis C: No Hx MRSA: Yes MRSA Source:: Wound - Vaccination History Hx Tetanus, Diphtheria Vaccination: Yes Hx Influenza Vaccination: Yes Hx Pneumococcal Vaccination: Yes - Social History Hx Tobacco Use: No Hx Alcohol Use: No Hx Substance Use: No Hx Substance Use Treatment: No Hx Depression: No - Female History Patient : No Family Medical History - Family History Mother Family History: No Known Living Status: Age at (years of age): 65 Hx Family Cancer: Yes - lung Father Family History: Unknown Living Status: Still Living Hx Family Diabetes: Yes Hx Family;Other: Adopted; unknown family hx Physical Exam - Physical Exam General Appearance: Alert, Comfortable Eyes, Ears, Nose, Throat Exam: PERRL/EOMI, normal ENT inspection, TMs normal, pharynx normal Neck: non-tender, full range of motion, supple, normal inspection Cardiovascular/Respiratory: regular rate, rhythm, no M/R/G, normal peripheral pulses, no JVD, normal breath sounds, no respiratory distress Gastrointestinal/Abdominal: non tender, no organomegaly, no pulsatile mass Back Exam: CVA tenderness (R) Extremity: normal range of motion, non-tender, normal inspection Neurologic: no motor/sensory deficits, alert, normal mood/affect, oriented x 3 Skin Exam: normal color Lymphatic: no adenopathy Departure - Departure Clinical Impression: UTI (urinary tract infection) Time of Disposition: 16:04 Disposition: Discharge to Home or Self Care Condition: Good Departure Forms: ED Discharge - Pt. Copy, Patient Portal Self Enrollment Diet: resume usual diet Activity: increase activity as tolerated, walking as tolerated Referrals: Sridhar Jean MD [Primary Care Provider] - 1-2 Weeks Prescriptions: Ciprofloxacin HCl [Cipro] 500 mg PO BID #14 tab Naproxen [Naprosyn] 500 mg PO BID #10 tab Home Medications: Ambulatory Orders Lamotrigine 300 mg PO BID 06/08/17 Phenytoin Sodium Cap Extended [Dilantin Cap] 200 mg PO DAILY 07/25/17 Clopidogrel Bisulfate 75 mg PO DAILY 10/13/17 LORazepam [Ativan] 0.5 mg PO TID PRN 10/13/17 Lisinopril 5 mg PO DAILY 10/13/17 Atorvastatin Calcium [Lipitor] 40 mg PO DAILY 12/04/17 Aspirin [Aspirin Adult Low Dose] 81 mg PO DAILY 10/10/18 Nitroglycerin 0.4 mg SL PRN 10/10/18 Phenytoin Sodium Extended [Dilantin] 30 mg PO DAILY 10/10/18 Ciprofloxacin HCl [Cipro] 500 mg PO BID #14 tab 08/29/19 Naproxen [Naprosyn] 500 mg PO BID #10 tab 08/29/19
[2019-08-29 16:18] VITALS: BP 140/83; TEMP 97.6; O2SAT 99
== END 2019-08-29 16:18 | disposition home or self-care (01) ==
LOC: ER 12:25
DX: N39.0 Urinary tract infection, site not specified (principal); I25.2 Old myocardial infarction; I10 Essential (primary) hypertension; R56.9 Unspecified convulsions; Z87.820 Personal history of traumatic brain injury; Z79.82 Long term (current) use of aspirin; Z79.899 Other long term (current) drug therapy; Z91.040 Latex allergy status; Z88.8 Allergy status to other drugs, medicaments and biological substances
CPT/HCPCS: 36415; 74176; 80053; 81001; 85025; 87086; J0500; J0696; J1885; J7030; J7050

== ENCOUNTER → 2019-10-06 | Outpatient (CLI) | payer MEDICARE | LOC: GMA MATASK 16:43 | PROVIDERS: ATTEND Family Medicine | DX: R41.3 Other amnesia (principal) ==

== ENCOUNTER 2019-12-05 14:26 | Emergency (ER) | payer MEDICARE ==
[2019-12-05 14:48] VITALS: TEMP 96
[2019-12-05] MEDS ORDERED: SODIUM CHLORIDE 0.9% (FLUSH) 10 ML SYG IV PRN (15:19)
--- NOTE | 2019-12-05 16:06 | RAD ---
EXAM DESCRIPTION: X-ray one view of the chest CLINICAL HISTORY:54 years Female, sob Comparison: None FINDINGS: No focal lung consolidation. Lung volumes are decreased No pleural effusion. No pneumothorax. Cardiac and mediastinal silhouette is unremarkable. No acute osseous abnormality. Soft tissues are unremarkable. IMPRESSION: No acute findings. No focal lung consolidation. Electronically signed by: John Fuentes DO 12/05/2019 4:04 PM [facility]
--- NOTE | 2019-12-05 16:11 | CT ---
PROCEDURE: CT Head CLINICAL HISTORY: dizziness TECHNIQUE: Contiguous axial CT images obtained through the brain without IV contrast. Coronal and sagittal reformatted images were provided. This exam was performed according to our departmental dose-optimization program, which includes automated exposure control, adjustment of the mA and/or kV according to patient size and/or use of iterative reconstruction technique. COMPARISON: 10/10/2018 FINDINGS: Brain: Mild cerebral atrophy without significant interval change. No significant white matter changes. No focal mass effect. Pope-white matter differentiation is within normal limits. No hemorrhage. Ventricles: No ventriculomegaly or midline shift. Extra-axial spaces: No extra-axial collection or hemorrhage. Paranasal sinuses and mastoid air cells: Prior bilateral paranasal sinus surgery again demonstrated. Vessels: There is atherosclerotic disease of the internal carotid arteries bilaterally. Bones: Unremarkable Soft tissues: Unremarkable IMPRESSION: No acute intracranial or extra-axial abnormality. Electronically signed by: Gisel Mcclain MD 12/05/2019 4:10 PM [facility]
[2019-12-05] MEDS ORDERED: SODIUM CHLORIDE 0.9% 1000ML 1,000 ML IVS ONE (16:18)
--- NOTE | 2019-12-05 16:43 | ED.PDOC ---
History of Present Illness - General Chief Complaint: General Stated Complaint: possibly over medicated Time Seen by Provider: 12/05/19 15:19 - History of Present Illness Initial Comments: c/o dizziness and imbalance for few days , unable to walk properly , falling down , no chest pain or focal deficit Severity: moderate Improving Factors: nothing Worsening Factors: nothing Associated Symptoms: denies symptoms Allergies/Adverse Reactions: Allergies Latex Allergy (Verified 12/05/19 14:48) Anaphylaxis New allergy reported 10/27/14 Levetiracetam [From [facility]] Allergy (Verified 12/05/19 14:48) Home Medications: Ambulatory Orders Phenytoin Sodium Cap Extended [Dilantin Cap] 300 mg PO DAILY 07/25/17 LORazepam [Ativan] 0.5 mg PO TID PRN 10/13/17 Lisinopril 5 mg PO DAILY 10/13/17 Nitroglycerin 0.4 mg SL PRN 10/10/18 Lamotrigine [Lamictal] 2 tablet PO BID 12/05/19 Phenytoin Sodium Extended [Phenytek] 300 mg PO DAILY 12/05/19 Rosuvastatin Calcium 20 mg PO DAILY 12/05/19 Review of Systems - Review of Systems Constitutional: States: weakness EENTM: States: no symptoms reported Respiratory: States: no symptoms reported Cardiology: States: no symptoms reported Gastrointestinal/Abdominal: States: no symptoms reported Genitourinary: States: no symptoms reported Musculoskeletal: States: no symptoms reported Skin: States: no symptoms reported Neurological: States: no symptoms reported Endocrine: States: no symptoms reported Hematologic/Lymphatic: States: no symptoms reported 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 Hx Stroke: No Hx Asthma: No Hx of COPD: No Hx Cardiac Disorders: Yes - [place] Hx Congestive Heart Failure: No Hx Pacemaker: No Hx Hypertension: Yes Hx Diabetes: No Hx Cancer: No Hx Hepatitis C: No Hx MRSA: Yes MRSA Source:: Wound Surgical History: appendectomy, cholecystectomy, Hysterectomy - Vaccination History Hx Tetanus, Diphtheria Vaccination: No Hx Influenza Vaccination: No Hx Pneumococcal Vaccination: No Immunizations Up to Date: No - Social History Hx Tobacco Use: No Hx Alcohol Use: No Hx Substance Use: No Hx Substance Use Treatment: No Hx Depression: No - Female History Patient is a Female of Child Bearing Age (10 -59 yrs old): No Patient : No Family Medical History - Family History Mother Family History: No Known Living Status: Age at (years of age): 65 Hx Family Cancer: Yes - lung Father Family History: Unknown Living Status: Still Living Hx Family Diabetes: Yes Hx Family;Other: Adopted; unknown family hx Physical Exam - Physical Exam General Appearance: Alert, Comfortable, Well Developed, Well Groomed, Well Nourished Eye Exam: bilateral normal Ears, Nose, Throat: hearing grossly normal, normal ENT inspection, normal pharynx Neck: non-tender, full range of motion, supple, normal inspection Respiratory: chest non-tender, lungs clear, normal breath sounds, no respiratory distress, no accessory muscle use Cardiovascular/Chest: regular rate, rhythm Back Exam: normal inspection, no CVA tenderness, no vertebral tenderness Extremity: normal range of motion, non-tender, normal inspection 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, no motor/sensory deficits, alert, normal mood/affect, oriented x 3 Skin Exam: normal color, warm/dry Lymphatic: no adenopathy Progress - Progress Progress: 12/05/19 17:16 12/05/19 15:19 IV Care:Saline Lock per Protoc QSHIFT Telemetry .ONCE Sodium Chloride 0.9% (Flush) [Saline Flush Syringe] 10 ml IV PRN PRN 12/05/19 15:30 EKG STAT 12/05/19 16:18 Sodium Chloride 0.9% 1000ML [Ns 1000 ml] 1,000 ml IVS ONCE 12/05/19 16:50 URINE DRUG SCREEN, 7 ASSAY Stat Laboratory Results WBC 8.3 K/mm3 (4.8-10.8) 12/05/19 15:45 RBC 4.81 M/mm3 (4.20-5.40) 12/05/19 15:45 Hgb 14.4 gm/dL (12.0-16.0) 12/05/19 15:45 Hct 42.4 % (36.0-47.0) 12/05/19 15:45 MCV 88.3 fl (81.0-99.0) 12/05/19 15:45 MCH 30.0 pg (27.0-31.0) 12/05/19 15:45 MCHC 33.9 g/dL (33.0-37.0) 12/05/19 15:45 RDW 13.1 % (11.5-14.5) 12/05/19 15:45 Plt Count 268 K/mm3 (130-400) 12/05/19 15:45 MPV 7.6 fl (7.40-10.4) 12/05/19 15:45 Absolute Neuts (auto) 5.70 K/uL (1.8-6.8) 12/05/19 15:45 Absolute Lymphs (auto) 2.00 K/uL (1.0-3.4) 12/05/19 15:45 Absolute Monos (auto) 0.40 K/uL (0.2-0.8) 12/05/19 15:45 Absolute Eos (auto) 0.10 K/uL (0.0-0.4) 12/05/19 15:45 Absolute Basos (auto) 0.10 K/uL (0.0-0.1) 12/05/19 15:45 Neutrophils % 69.4 % (42.0-78.0) 12/05/19 15:45 Lymphocytes % 23.8 % (20.0-50.0) 12/05/19 15:45 Monocytes % 5.1 % (2.0-9.0) 12/05/19 15:45 Eosinophils % 0.7 % (1.0-5.0) L 12/05/19 15:45 Basophils % 1.0 % (0.0-2.0) 12/05/19 15:45 Sodium 135 mmol/L (135-145) 12/05/19 15:45 Potassium 4.4 mmol/L (3.6-5.0) 12/05/19 15:45 Chloride 98 mmol/L (101-111) L 12/05/19 15:45 Carbon Dioxide 26 mmol/L (21-31) 12/05/19 15:45 Anion Gap 15.4 (12-18) 12/05/19 15:45 BUN 12 mg/dL (7-18) 12/05/19 15:45 Creatinine 0.48 mg/dL (0.6-1.3) L 12/05/19 15:45 BUN/Creatinine Ratio 25.0 (10-20) H 12/05/19 15:45 Random Glucose 95 mg/dL (70-105) 12/05/19 15:45 Serum Osmolality 269.7 mOsm/L (275-295) L 12/05/19 15:45 Calcium 9.1 mg/dL (8.4-10.2) 12/05/19 15:45 Total Bilirubin 0.3 mg/dL (0.2-1.0) 12/05/19 15:45 AST 16 IU/L (10-42) 12/05/19 15:45 ALT 10 IU/L (10-60) 12/05/19 15:45 Alkaline Phosphatase 142 IU/L (42-121) H 12/05/19 15:45 Creatine Kinase 51 IU/L (26-140) 12/05/19 15:45 CK-MB (CK-2) 1.3 ng/mL (0.0-4.4) 12/05/19 15:45 CK-MB (CK-2) % Not Reportable 12/05/19 15:45 Troponin I < 0.02 ng/mL (0.01-0.05) 12/05/19 15:45 Serum Total Protein 7.7 gm/dL (6.4-8.2) 12/05/19 15:45 Albumin 4.4 g/dl (3.2-5.5) 12/05/19 15:45 Globulin 3.3 gm/dL (2.3-3.5) 12/05/19 15:45 Albumin/Globulin Ratio 1.3 (1.1-1.9) 12/05/19 15:45 Urine Color Yellow (Yellow) 12/05/19 16:34 Urine Appearance Clear (Clear) 12/05/19 16:34 Urine pH 6.0 (4.5-7.8) 12/05/19 16:34 Ur Specific [place] 1.010 (1.005-1.030) 12/05/19 16:34 Urine Protein Negative mg/dL 12/05/19 16:34 Urine Glucose (UA) Negative mg/dL (Negative) 12/05/19 16:34 Urine Ketones Negative mg/dL (NEGATIVE) 12/05/19 16:34 Urine Blood Negative (Negative) 12/05/19 16:34 Urine Nitrite Negative 12/05/19 16:34 Urine Bilirubin Negative (NEGATIVE) 12/05/19 16:34 Urine Urobilinogen 0.2 mg/dL (0.2-1.0) 12/05/19 16:34 Ur Leukocyte Esterase Trace (Negative) H 12/05/19 16:34 Urine RBC 0 /hpf 12/05/19 16:34 Urine WBC 1-3 /hpf 12/05/19 16:34 Ur Epithelial Cells 0 /hpf 12/05/19 16:34 Urine Bacteria Rare 12/05/19 16:34 Phenytoin < 0.5 ug/mL (10.0-20.0) L 12/05/19 15:45 - Results/Orders Results/Orders: Pt feels much better now , walking independently , no fall - EKG/XRAY/CT EKG: Sinus Departure - Departure Clinical Impression: Dizziness Time of Disposition: 17:15 Disposition: Discharge to Home or Self Care Condition: Fair Departure Forms: ED Discharge - Pt. Copy, Patient Portal Self Enrollment Diet: resume usual diet Activity: increase activity as tolerated, walking as tolerated Referrals: Sridhar Jean MD [Primary Care Provider] - 1-2 Weeks Home Medications: Ambulatory Orders Phenytoin Sodium Cap Extended [Dilantin Cap] 300 mg PO DAILY 07/25/17 LORazepam [Ativan] 0.5 mg PO TID PRN 10/13/17 Lisinopril 5 mg PO DAILY 10/13/17 Nitroglycerin 0.4 mg SL PRN 10/10/18 Lamotrigine [Lamictal] 2 tablet PO BID 12/05/19 Phenytoin Sodium Extended [Phenytek] 300 mg PO DAILY 12/05/19 Rosuvastatin Calcium 20 mg PO DAILY 12/05/19
--- NOTE | 2019-12-05 17:03 | CT ---
EXAM DESCRIPTION: Cervical Spine CLINICAL HISTORY: dizziness COMPARISON: None Available TECHNIQUE: Contiguous axial images of the cervical spine were obtained without the administration of intravenous contrast followed by reconstruction images. This exam was performed according to our departmental dose-optimization program, which includes automated exposure control, adjustment of the mA and/or kV according to patient size and/or use of iterative reconstruction technique. FINDINGS: There is no acute fracture or subluxation. Prevertebral soft tissues are within normal limits. There is atherosclerosis. There are scattered emphysematous changes within the upper lungs. IMPRESSION: No acute fracture or subluxation Electronically signed by: David Zamora MD 12/05/2019 5:02 PM [facility]
[2019-12-05 17:57] VITALS: BP 139/84; O2SAT 96
== END 2019-12-05 17:55 | disposition home or self-care (01) ==
LOC: ER 14:26
DX: R42 Dizziness and giddiness (principal); R53.1 Weakness; R56.9 Unspecified convulsions; I25.2 Old myocardial infarction; I10 Essential (primary) hypertension; Z87.820 Personal history of traumatic brain injury; Z79.899 Other long term (current) drug therapy; Z91.040 Latex allergy status; Z88.8 Allergy status to other drugs, medicaments and biological substances
CPT/HCPCS: 36415; 70450; 71045; 72125; 80053; 80185; 80307; 81001; 82550; 82553; 84484; 85025; 93005; J7030

== ENCOUNTER → 2019-12-14 | Outpatient (CLI) | payer MEDICARE | LOC: GMA MATASK 14:19 | PROVIDERS: ATTEND Family Medicine | DX: R56.1 Post traumatic seizures (principal) ==

== ENCOUNTER 2020-02-02 11:19 | Emergency (ER) | payer MEDICARE ==
--- NOTE | 2020-02-02 11:58 | ED.PDOC ---
History of Present Illness - General Stated Complaint: seizure, SOB Time Seen by Provider: 02/02/20 11:37 Additional Information: 55 y/o female with Shortness of breath. She has a history of a TBI and has epilepsy. She was here yesterday for seizure and adverse effect of medication. Today patient has difficulty giving concise or cohesive history. She appears anxious and tremulous. Recently started lisinopril and apparently fell or passed out with each dose. Her relates that she had another seizure this morning. - History of Present Illness Allergies/Adverse Reactions: Allergies Latex Allergy (Verified 02/02/20 11:55) Anaphylaxis New allergy reported 10/27/14 Levetiracetam [From [facility]] Allergy (Verified 02/02/20 11:55) Home Medications: Ambulatory Orders Phenytoin Sodium Cap Extended [Dilantin Cap] 300 mg PO DAILY 07/25/17 LORazepam [Ativan] 0.5 mg PO TID PRN 10/13/17 Lisinopril 5 mg PO DAILY 10/13/17 Nitroglycerin 0.4 mg SL PRN 10/10/18 Lamotrigine [Lamictal] 2 tablet PO BID 12/05/19 Phenytoin Sodium Extended [Phenytek] 300 mg PO DAILY 12/05/19 Rosuvastatin Calcium 20 mg PO DAILY 12/05/19 Metronidazole 500 mg PO BID 7 Days #14 tab 02/01/20 Review of Systems - Review of Systems Constitutional: Denies: chills, fever EENTM: Denies: blurred vision, double vision, throat swelling Respiratory: States: short of breath. 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 Hx Stroke: No Hx Asthma: No Hx of COPD: No Hx Cardiac Disorders: Yes - ND Hx Congestive Heart Failure: No Hx Pacemaker: No Hx Hypertension: Yes Hx Diabetes: No Hx Cancer: No Hx Hepatitis C: No Hx MRSA: Yes MRSA Source:: Wound - Vaccination History Hx Tetanus, Diphtheria Vaccination: No Hx Influenza Vaccination: No Hx Pneumococcal Vaccination: No - Social History Hx Tobacco Use: No Hx Alcohol Use: No Hx Substance Use: No Hx Substance Use Treatment: No Hx Depression: No - Female History Patient : No Family Medical History - Family History Mother Family History: No Known Living Status: Age at (years of age): 65 Hx Family Cancer: Yes - lung Father Family History: Unknown Living Status: Still Living Hx Family Diabetes: Yes Hx Family;Other: Adopted; unknown family hx Physical Exam - Physical Exam General Appearance: Anxious Eyes, Ears, Nose, Throat Exam: PERRL/EOMI, normal ENT inspection Neck: non-tender, full range of motion, supple Respiratory: chest non-tender, lungs clear, normal breath sounds, respiratory distress - appeared to be SOB but had normal sats Cardiovascular/Chest: regular rate, rhythm, no JVD, no murmur Gastrointestinal/Abdominal: non tender, soft Extremity: normal range of motion - gait is normal Neurologic: alert, oriented x 3 Skin Exam: normal color Progress - Progress Progress: 02/02/20 12:30 1230 reports that pt is not able to tolerate lisinopril or full dose lamotrigine. she had a seizure this morning and he says this is the first time in 2 yrs. She is currently taking Flagyl since yesterday for trichomonas. she thinks her dilantin is probably low. 02/02/20 13:14 plan to correct subtherapeutic Dilantin level with cerebyx. she will then go back on her usual dose of dilantin - Results/Orders Results/Orders: 02/02/20 11:38 EKG .ONCE 02/02/20 12:55 Fosphenytoin [Cerebyx] 0 pe Sodium Chloride 0.9% 100Ml [NS (NACL 0.9%) 100ml] 100 ml IVPB ONCE Laboratory Results - last 24 hr 02/02/20 02/02/20 02/02/20 11:43 11:43 11:43 WBC 6.1 RBC 4.43 Hgb 13.5 Hct 39.0 MCV 88.1 MCH 30.5 MCHC 34.6 RDW 13.3 Plt Count 219 MPV 8.0 Absolute Neuts (auto) 3.60 Absolute Lymphs (auto) 2.00 Absolute Monos (auto) 0.40 Absolute Eos (auto) 0.00 Absolute Basos (auto) 0.00 Neutrophils % 58.9 Lymphocytes % 32.8 Monocytes % 7.2 Eosinophils % 0.4 L Basophils % 0.7 pCO2 pO2 HCO3 ABG pH ABG O2 Saturation ABG Base Excess ABG Deoxyhemoglobin Oxyhemoglobin % Carboxyhemoglobin % Methemoglobin % Sat Calc Total Hemoglobin Sodium 137 Potassium 4.1 Chloride 104 Carbon Dioxide 25 Anion Gap 12.1 BUN 18 Creatinine 0.55 L BUN/Creatinine Ratio 32.7 H Random Glucose 87 Serum Osmolality 275.1 Calcium 8.6 Phenytoin < 0.5 L 02/02/20 11:53 WBC RBC Hgb Hct MCV MCH MCHC RDW Plt Count MPV Absolute Neuts (auto) Absolute Lymphs (auto) Absolute Monos (auto) Absolute Eos (auto) Absolute Basos (auto) Neutrophils % Lymphocytes % Monocytes % Eosinophils % Basophils % pCO2 28 L pO2 74 L HCO3 23.1 ABG pH 7.529 H ABG O2 Saturation 97.8 ABG Base Excess 1.4 ABG Deoxyhemoglobin 2.0 Oxyhemoglobin % 89.4 L Carboxyhemoglobin % 8.0 H Methemoglobin % Sat 0.6 Calc Total Hemoglobin 13.1 Sodium Potassium Chloride Carbon Dioxide Anion Gap BUN Creatinine BUN/Creatinine Ratio Random Glucose Serum Osmolality Calcium Phenytoin Departure - Departure Clinical Impression: Seizure, Seizure disorder, Subtherapeutic serum dilantin level Time of Disposition: 13:20 Disposition: Discharge to Home or Self Care Condition: Good Instructions: Seizures, Adult (DC) Referrals: Sridhar Jean MD [Primary Care Provider] - 1-2 Weeks Home Medications: Ambulatory Orders Phenytoin Sodium Cap Extended [Dilantin Cap] 300 mg PO DAILY 07/25/17 LORazepam [Ativan] 0.5 mg PO TID PRN 10/13/17 Lisinopril 5 mg PO DAILY 10/13/17 Nitroglycerin 0.4 mg SL PRN 10/10/18 Lamotrigine [Lamictal] 2 tablet PO BID 12/05/19 Phenytoin Sodium Extended [Phenytek] 300 mg PO DAILY 12/05/19 Rosuvastatin Calcium 20 mg PO DAILY 12/05/19 Metronidazole 500 mg PO BID 7 Days #14 tab 02/01/20
[2020-02-02 12:47] VITALS: O2SAT 98
[2020-02-02] MEDS ORDERED: FOSPHENYTOIN PE IVPB ONE (12:55)
[2020-02-02] MEDS ORDERED: SODIUM CHLORIDE IVPB ONE (12:55)
[2020-02-02] MEDS ORDERED: [UNRECOGNIZED DRUG - OTHER] ONE ×2 (13:51→13:58)
[2020-02-02] MEDS ORDERED: SODIUM CHLORIDE 0.9% 50ML 50 ML ONE (13:58)
[2020-02-02] MEDS: FOSPHENYTOIN PE IVPB ONE (14:04)
[2020-02-02] MEDS: SODIUM CHLORIDE IVPB ONE (14:04)
[2020-02-02 16:52] VITALS: BP 131/66; TEMP 98.7
== END 2020-02-02 16:52 | disposition home or self-care (01) ==
LOC: ER 11:19
DX: G40.909 Epilepsy, unspecified, not intractable, without status epilepticus (principal); T42.0X5A Adverse effect of hydantoin derivatives, initial encounter; Z87.820 Personal history of traumatic brain injury; I10 Essential (primary) hypertension; I25.2 Old myocardial infarction; Z79.899 Other long term (current) drug therapy
CPT/HCPCS: 36415; 36600; 80048; 80185; 82803; 82805; 85025; 93005; A4216; J2060

== ENCOUNTER → 2020-03-17 | Outpatient (CLI) | payer MEDICARE | LOC: GMA MATASK 11:27 | PROVIDERS: ATTEND Family Medicine | DX: I10 Essential (primary) hypertension (principal) ==

== ENCOUNTER 2020-12-01 13:49 | Emergency (ER) | payer MEDICARE ==
--- NOTE | 2020-12-01 13:57 | ED.PDOC ---
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 She was supposed to see her primary care physician today to receive a prescription for an oral antibiotic. When she arrived at the doctor's office it was closed. The patient complains of loosening of her lower teeth which is an ongoing problem. She is not complaining of trismus or difficulty swallowing. There has been no fever or chills. Patient also reports urinary frequency without dysuria. No flank pain. No nausea vomiting. Timing/Duration: other - Chronic Severity: mild Improving Factors: nothing Worsening Factors: nothing Allergies/Adverse Reactions: Allergies Latex Allergy (Verified 02/02/20 11:55) Anaphylaxis New allergy reported 10/27/14 Levetiracetam [From [facility]] Allergy (Verified 02/02/20 11:55) Home Medications: Ambulatory Orders Phenytoin Sodium Cap Extended [Dilantin Cap] 300 mg PO DAILY 07/25/17 LORazepam [Ativan] 0.5 mg PO TID PRN 10/13/17 Lisinopril 5 mg PO DAILY 10/13/17 Nitroglycerin 0.4 mg SL PRN 10/10/18 Lamotrigine [Lamictal] 2 tablet PO BID 12/05/19 Phenytoin Sodium Extended [Phenytek] 300 mg PO DAILY 12/05/19 Rosuvastatin Calcium 20 mg PO DAILY 12/05/19 Metronidazole 500 mg PO BID 7 Days #14 tab 02/01/20 Amoxicillin & Pot Clavulanate [Augmentin Tab] 875 mg PO BID 7 Days #14 tab 12/01/20 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 Hx Stroke: No Hx Asthma: No Hx of COPD: No Hx Cardiac Disorders: Yes - [place] Hx Congestive Heart Failure: No Hx Pacemaker: No Hx Hypertension: Yes Hx Diabetes: No Hx Cancer: No Hx Hepatitis C: No Hx MRSA: Yes MRSA Source:: Wound - Vaccination History Hx Tetanus, Diphtheria Vaccination: No Hx Influenza Vaccination: No Hx Pneumococcal Vaccination: No - Social History Hx Tobacco Use: No Hx Alcohol Use: No Hx Substance Use: No Hx Substance Use Treatment: No Hx Depression: No - Female History Patient : No Family Medical History - Family History Mother Family History: No Known Living Status: Age at (years of age): 65 Hx Family Cancer: Yes - lung Father Family History: Unknown Living Status: Still Living Hx Family Diabetes: Yes Hx Family;Other: Adopted; unknown family hx Physical Exam - Physical Exam General Appearance: Alert, Comfortable Eye Exam: bilateral normal Ears, Nose, Throat: normal pharynx, other - Gingival Swelling and tenderness of the anterior mandibular area. No purulence or pointing noted. The front teeth are loose but In a normal position. There is no trismus. Is a white Adherent coating to the tongue. 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 Medical decision makin-year-old female with severe gingivitis and dental pathology. There is no trismus fever or difficulty swallowing to suggest a dental emergency. Patient complains of some urinary frequency without dysuria but urine analysis does not indicate infection. Prescription of Augmentin is prescribed till she sees her dentist and primary care physician. - Results/Orders Results/Orders: 12/01/20 14:41 Amoxicillin & Pot Clavulanate [Augmentin Tab] 875 mg PO ONCE ONE Laboratory Results - last 24 hr 12/01/20 14:15 Urine Color Yellow Urine Appearance Clear Urine pH 6.0 Ur Specific [place] >= 1.030 Urine Protein Negative Urine Glucose (UA) Negative Urine Ketones Negative Urine Blood Negative Urine Nitrite Negative Urine Bilirubin Negative Urine Urobilinogen 0.2 Ur Leukocyte Esterase Negative Urine RBC 0-1 Urine WBC 0-1 Ur Epithelial Cells 1-3 Amorphous Sediment 1+ Urine Bacteria 0 Urine Mucus Moderate Vital Signs - 24 hr 12/01/20 14:08 Temperature 98.1 F Pulse Rate [ 104 H Right Brachial] Respiratory 20 Rate Blood Pressure 149/95 [Right Arm] O2 Sat by Pulse 98 Oximetry Departure - Departure Clinical Impression: Gingivitis, Candidiasis Time of Disposition: 14:43 Disposition: Discharge to Home or Self Care Condition: Good Departure Forms: ED Discharge - Pt. Copy Diet: resume usual diet Referrals: Sridhar Jean MD [Primary Care Provider] - 1-2 Weeks Prescriptions: Amoxicillin & Pot Clavulanate [Augmentin Tab] 875 mg PO BID 7 Days #14 tab Home Medications: Ambulatory Orders Phenytoin Sodium Cap Extended [Dilantin Cap] 300 mg PO DAILY 07/25/17 LORazepam [Ativan] 0.5 mg PO TID PRN 10/13/17 Lisinopril 5 mg PO DAILY 10/13/17 Nitroglycerin 0.4 mg SL PRN 10/10/18 Lamotrigine [Lamictal] 2 tablet PO BID 12/05/19 Phenytoin Sodium Extended [Phenytek] 300 mg PO DAILY 12/05/19 Rosuvastatin Calcium 20 mg PO DAILY 12/05/19 Metronidazole 500 mg PO BID 7 Days #14 tab 02/01/20 Amoxicillin & Pot Clavulanate [Augmentin Tab] 875 mg PO BID 7 Days #14 tab 12/01/20 Additional Instructions: See your dentist and your primary care physician as soon as possible. If you develop high fever, inability to open your mouth or difficulty swallowing then return to the emergency department.
[2020-12-01 14:13] VITALS: BP 149/95; TEMP 98.1; O2SAT 98
[2020-12-01] MEDS ORDERED: AMOXICILLIN & POT CLAVULANATE 875 MG TAB PO ONE (14:41)
== END 2020-12-01 14:55 | disposition home or self-care (01) ==
LOC: ER 13:49
DX: K05.10 Chronic gingivitis, plaque induced (principal); B37.9 Candidiasis, unspecified; R35.0 Frequency of micturition; I10 Essential (primary) hypertension; I25.2 Old myocardial infarction; R56.9 Unspecified convulsions; Z87.828 Personal history of other (healed) physical injury and trauma; Z79.899 Other long term (current) drug therapy; Z88.8 Allergy status to other drugs, medicaments and biological substances; Z91.040 Latex allergy status